=== PATIENT | female | born 1935 | race Caucasian/White ===

== ENCOUNTER → 2016-11-09 | Outpatient (CLI) | payer OTHER ==
--- NOTE | 2016-11-09 17:27 | DX ---
Single view pelvis at 1317 hours History: Comminuted right suprapubic fracture in August 2016, follow up. Comparison: September 2016. Findings: Subacute fractures of the right superior and inferior pubic rami are again noted with some callus formation. Fracture line of the inferior pubic ramus appears in satisfactory alignment with a fracture line still partially evident. The right superior pubic ramus oblique fracture is displaced and overlapping with suggestion of developing calcification. No complete fusion. Old left inferior pubic ramus fracture. Left acetabular protrusio. Moderate bilateral hip osteoarthri tis with slight joint space narrowing and acetabular sclerosis, right worse than left. Partially visu alized lower lumbar levoscoliosis. Sclerotic changes in bilateral sacroiliac joints. Impression: 1. Subacute fractures of the right superior and inferior pubic rami with partial callus formation, bu t no evidence of complete fusion. 2. Left acetabular protrusio. 3. Please see above findings.
== END ==
LOC: FIMAGING 13:02
PROVIDERS: ATTEND Physician Assistant
DX: S32.591A Other specified fracture of right pubis, initial encounter for closed fracture (principal)

== ENCOUNTER 2017-09-11 02:12 | Emergency (ER) | payer OTHER ==
[2017-09-11 02:23] VITALS: RESP 16; TEMP 98.1
--- NOTE | 2017-09-11 02:56 | EDPHY ---
H & P Stated Complaint: fall lac to face Time Seen by Provider: 09/11/17 02:48 HPI/ROS: Chief Complaint: Face laceration HPI: 82-year-old woman was having a restless gene when she fell out of bed, she struck the left side of her face on a stair just next to her bed. She had no loss of consciousness. Is not on any blood thinning medications. No neck pain. No numbness or weakness. No nausea or vomiting. Does not have a headache. No jaw pain or facial pain at this time. ROS: 10 point Review of Systems is negative except as noted in the HPI. Family History: non-contributory Physical Exam: Gen: Awake, Alert, Airway Intact HEENT: Head: Atraumatic Eyes: PERRLA, EOMI Nose: No epistaxis Mouth: Normal dentition, Airway patent, Moban tubular tenderness, full range of motion without pain Face: She has a dog ear laceration on her left cheek, no bony deformities. Neck: non-tender, no stepoff, Full ROM without pain Chest: non-tender, lungs CTA Heart: normal heart tones Abd: soft, non-tender, atraumatic Pelvis: non-tender, stable to AP and Lateral compression Back: atraumatic, no midline tenderness Ext: atramatic, full ROM Skin: no rash Neuro: CN II-XII intact, Strength 5/5 in all extremities, sensation intact in all extremities - Personal History Current Tetanus/Diphtheria Vaccine: Yes Current Tetanus Diphtheria and Acellular Pertussis (TDAP): Yes - Medical/Surgical History Hx Asthma: No Hx Chronic Respiratory Disease: No Hx Diabetes: No Hx Cardiac Disease: No Hx Renal Disease: No Hx Cirrhosis: No Hx Alcoholism: No Hx HIV/AIDS: No Hx Splenectomy or Spleen Trauma: No Other PMH: Renal Stent, cataract surgery, right hip FX - Social History Smoking Status: Never smoked Constitutional: Initial Vital Signs Temperature (C) 36.7 C 09/11/17 02:21 Heart Rate 84 09/11/17 02:21 Respiratory Rate 16 09/11/17 02:21 Blood Pressure 156/82 H 09/11/17 02:21 O2 Sat (%) 93 09/11/17 02:21 O2 Delivery Mode Room Air Allergies/Adverse Reactions: No Known Allergies Allergy (Unverified 02/26/10 02:00) Home Medications: Medication Instructions Recorded Atorvastatin Calcium [Lipitor 20 20 mg PO Q2D 02/26/10 mg (*)] Fluticasone/Salmeter 100/50Mcg 1 puffs IH DAILY PRN 02/26/10 [Advair 100/50 (*)] Hydrochlorothiazide [HCTZ (*)] 25 mg PO DAILY 02/26/10 Irbesartan [Avapro 150 mg (*)] 150 mg PO DAILY 02/26/10 Ascorbic Acid [Vitamin C 500 mg 1,000 mg PO DAILY 09/11/16 (*)] Cholecalciferol Vit D3 [Vitamin D3 5,000 units PO DAILY 09/11/16 (*)] [place]-3 Fatty Acids [Fish Oil 1000 1,000 mg PO DAILY 09/11/16 mg (*)] Omeprazole [Prilosec 20 mg] 20 mg PO DAILY 09/11/16 amLODIPine BESYLATE [Norvasc 5 mg 5 mg PO DAILY #0 tab 09/14/16 (*)] oxyCODONE IR [Oxycodone Ir (*)] 5 - 10 mg PO Q4HRS PRN #0 tab 09/14/16 Acetaminophen [Tylenol 325mg (*)] 650 mg PO Q6 #0 tab 09/16/16 Medical Decision Making Procedures: Procedure: Laceration repair. Verbal consent was obtained from the patient. The 3 cm laceration on the face was anesthetized in the usual fashion. The wound was irrigated, draped and explored to its base with a gloved finger. There were no deep structures involved. No tendon injury was identified. The wound was repaired with a layered closure. To 6-0 Vicryl horizontal mattress deep sutures. Skin closed with 7, 6-0 Ethilon simple interrupted sutures. The wound repair was a complicated later closure. The procedure was performed by myself. ED Course/Re-evaluation: Laceration repaired. Patient head is no headache or bony deformities or tenderness at this time. She is not on any anticoagulation. Will discharge with suture removal 5 days, return for worsening. Departure - Departure Disposition: Home, Routine, Self-Care Clinical Impression: Laceration of face Condition: Good Instructions: Facial Laceration (ED), Care For Your Stitches (ED) Additional Instructions: Sutures need to be removed in 5 days. Return to the emergency depart for increasing headache, fevers, chills, discharge from the wound, nausea, vomiting, or any other concerns. Referrals: Nina Mcfarlane MD [Primary Care Provider] - As per Instructions
[2017-09-11 04:09] VITALS: BP 146/82; PULSE 70; O2SAT 95
== END 2017-09-11 04:14 | disposition home or self-care (01) ==
PROC: 0HQ1XZZ Repair Face Skin, External Approach (ICD-10-PCS; principal; 2017-09-11)
DX: S01.81XA Laceration without foreign body of other part of head, initial encounter (principal); W06.XXXA Fall from bed, initial encounter

== ENCOUNTER 2017-09-27 16:53 | Observation (INO) | payer OTHER ==
--- NOTE | 2017-09-27 18:01 | EDPHY ---
H & P Time Seen by Provider: 09/27/17 17:49 HPI/ROS: \CHIEF COMPLAINT: Shortness of breath with exertion HISTORY OF PRESENT ILLNESS: Patient had a fall 2 weeks ago 09/11/17 injuring left side of her chest. Since Wednesday she has felt increasing dyspnea with exertion until today she can barely even walk across the room without feeling short of breath. Not associated with chest pain or fever or cough. Symptoms not really present at rest but severe with exertion. REVIEW OF SYSTEMS: Eye: no change in vision ENT: no sore throat Cardiac: HPI no syncope Pulmonary: HPI no cough or hemoptysis Abdomen: no vomiting, diarrhea, abdominal pain Musculoskeletal: no back pain Skin: Left-sided chest bruising Neuro: no headache Constitutional: no fever : no urinary symptoms A comprehensive 10 point review of systems is otherwise negative aside from elements mentioned in the history of present illness. PAST MEDICAL HISTORY: Renal stent, cataract surgery, right hip fracture, asthma Social history: Nonsmoker General Appearance: Alert and conversant, cooperative. Eyes: No scleral icterus. ENT, Mouth: Normal mucous membranes. Respiratory: Normal respiratory effort, breath sounds equal, lungs are clear to auscultation. Cardiovascular: Regular rate and rhythm. Gastrointestinal: Abdomen is soft and non tender. Neurological: Alert and oriented x3. Normally conversant. Face symmetric, normal movement and sensation in all extremities. Skin: Bruising on the left chest both upper and lower around her breast. Musculoskeletal: No calf tenderness Psychiatric: Not agitated. ED course: MDM Chest Xray, d-dimer, EKG and troponin. 736: CT ordered, d-dimer elevated. 809pm: Bilateral pulmonary embolism per Dr. Chin Results discussed including reviewing the images on the computer system with the patient. Weight based Lovenox, admission for severity of symptoms. Images also personally reviewed and interpreted by myself. Smoking Status: Never smoked Constitutional: Initial Vital Signs Temperature (C) 36.4 C 09/27/17 16:54 Heart Rate 88 09/27/17 16:54 Respiratory Rate 18 09/27/17 16:54 Blood Pressure 165/100 H 09/27/17 16:54 O2 Sat (%) 92 09/27/17 16:54 O2 Delivery Mode Room Air Allergies/Adverse Reactions: No Known Allergies Allergy (Unverified 02/26/10 02:00) Home Medications: Medication Instructions Recorded Atorvastatin Calcium [Lipitor 20 20 mg PO Q2D 02/26/10 mg (*)] Fluticasone/Salmeter 100/50Mcg 1 puffs IH DAILY PRN 02/26/10 [Advair 100/50 (*)] Hydrochlorothiazide [HCTZ (*)] 25 mg PO DAILY 02/26/10 Irbesartan [Avapro 150 mg (*)] 150 mg PO DAILY 02/26/10 Ascorbic Acid [Vitamin C 500 mg 1,000 mg PO DAILY 09/11/16 (*)] Cholecalciferol Vit D3 [Vitamin D3 5,000 units PO DAILY 09/11/16 (*)] [place]-3 Fatty Acids [Fish Oil 1000 1,000 mg PO DAILY 09/11/16 mg (*)] Omeprazole [Prilosec 20 mg] 20 mg PO DAILY 09/11/16 amLODIPine BESYLATE [Norvasc 5 mg 5 mg PO DAILY #0 tab 09/14/16 (*)] oxyCODONE IR [Oxycodone Ir (*)] 5 - 10 mg PO Q4HRS PRN #0 tab 09/14/16 Acetaminophen [Tylenol 325mg (*)] 650 mg PO Q6 #0 tab 09/16/16 Medical Decision Making - Diagnostics EKG Interpretation: 12-lead EKG interpreted by me; official reading is in trace master. My interpretation is sinus rhythm with left atrial abnormality and left bundle branch block Imaging Results: Imaging Impressions Chest X-Ray 09/27/17 17:59 Impression: 1. No acute findings in the chest. 2. Age-indeterminate compression fractures in the midthoracic and upper lumbar spine. 3. Additional findings as above. Chest/Thorax CTA 09/27/17 19:35 Impression: 1. Positive bilateral pulmonary thromboemboli, moderate volume. 2. 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 3. No pleural effusion or pericardial effusion. 4. Atherosclerotic thoracic aorta, without aneurysm. Coronary atherosclerosis. Findings and recommendations discussed with Emergency Department physician, James Mays M.D., at 2000 hours, on September 27, 2017. Final report concurs with initial preliminary interpretation. A test result has been communicated to a licensed care provider and documented in the [facility] Critical Result system on 09/27/2017 20:09, Message ID [id number]. Differential Diagnosis: Differential diagnosis considered for shortness of breath including but not limited to pulmonary infectious process, COPD, asthma, pulmonary embolus and congestive heart failure. Consult/Admit Bed Type: Rien[facility] 2023 - Data Points Laboratory Results: Laboratory Results 09/27/17 18:30 09/27/17 18:30 09/27/17 09/27/17 09/27/17 18:30 18:30 18:30 WBC 8.58 10^3/uL 10^3/uL (3.80-9.50) RBC 3.87 10^6/uL L 10^6/uL (4.18-5.33) Hgb 13.0 g/dL g/dL (12.6-16.3) Hct 37.5 % L % (38.0-47.0) MCV 96.9 fL fL (81.5-99.8) MCH 33.6 pg pg (27.9-34.1) MCHC 34.7 g/dL g/dL (32.4-36.7) RDW 13.3 % % (11.5-15.2) Plt Count 257 10^3/uL 10^3/uL (150-400) MPV 10.2 fL fL (8.7-11.7) Neut % (Auto) 70.1 % % (39.3-74.2) Lymph % (Auto) 20.6 % % (15.0-45.0) Jerome % (Auto) 7.0 % % (4.5-13.0) Eos % (Auto) 1.0 % % (0.6-7.6) Baso % (Auto) 0.7 % % (0.3-1.7) Nucleat RBC Rel Count 0.0 % % (0.0-0.2) Absolute Neuts (auto) 6.01 10^3/uL 10^3/uL (1.70-6.50) Absolute Lymphs (auto) 1.77 10^3/uL 10^3/uL (1.00-3.00) Absolute Monos (auto) 0.60 10^3/uL 10^3/uL (0.30-0.80) Absolute Eos (auto) 0.09 10^3/uL 10^3/uL (0.03-0.40) Absolute Basos (auto) 0.06 10^3/uL 10^3/uL (0.02-0.10) Absolute Nucleated RBC 0.00 10^3/uL 10^3/uL (0-0.01) Immature Gran % 0.6 % % (0.0-1.1) Immature Gran # 0.05 10^3/uL 10^3/uL (0.00-0.10) D-Dimer 5.21 ug/mLFEU H ug/mLFEU (0.00-0.50) Sodium 140 mEq/L mEq/L (134-144) Potassium 4.7 mEq/L mEq/L (3.5-5.2) Chloride 103 mEq/L mEq/L (97-110) Carbon Dioxide 22 mEq/l mEq/l (22-31) Anion Gap 15 mEq/L mEq/L (8-16) BUN 30 mg/dL H mg/dL (7-23) Creatinine 1.1 mg/dL H mg/dL (0.6-1.0) Estimated GFR 47 Glucose 93 mg/dL mg/dL (70-100) Calcium 9.7 mg/dL mg/dL (8.5-10.4) Troponin I 0.074 ng/mL H ng/mL (0.000-0.034) NT-Pro-B Natriuret Pep 87249 pg/mL H pg/mL (0-450) Specimen Hemolysis 130 Medications Given: Discontinued Medications Enoxaparin Sodium (Lovenox) 60 mg SC EDNOW ONE Stop: 09/27/17 20:18 Last Admin: 09/27/17 21:04 Dose: 60 mg Oxycodone HCl (Oxycodone Ir) 5 mg PO EDNOW ONE Stop: 09/27/17 20:17 Last Admin: 09/27/17 20:44 Dose: 5 mg Departure - Departure Disposition: [facility] Clinical Impression: Bilateral pulmonary embolism Condition: Good
--- NOTE | 2017-09-27 18:35 | CPEKG ---
Heart Rate: 93 RR Interval: 645 P-R Interval: 208 QRSD Interval: 134 QT Interval: 444 QTC Interval: 553 P [place]: 42 QRS [place]: -1 T Wave [place]: 71 EKG Severity - ABNORMAL ECG - EKG Impression: SINUS RHYTHM EKG Impression: SUPRAVENTRICULAR BIGEMINY EKG Impression: PROBABLE LEFT ATRIAL ABNORMALITY EKG Impression: LEFT BUNDLE BRANCH BLOCK Electronically Signed By: James Mays 27-Sep-2017 18:41:44
[2017-09-27 18:45] LABS: % IMMATURE GRANULYOCYTES 0.6 % (0.0-1.1); ABSOLUTE IMMATURE GRANULOCYTES 0.05 10^3/uL (0.00-0.10); ADD DIFF? NO; ADD MORPH? NO; ADD SCAN? NO; ATYPICAL LYMPHOCYTE FLAG 0 (0-99); FRAGMENT RBC FLAG 0 (0-99); HEMATOCRIT 37.5 % (38.0-47.0); LEFT SHIFT FLG 0 (0-99); LIPEMIA HEMOLYSIS FLAG 90 (0-99); MEAN CELL HEMOGLOBIN 33.6 pg (27.9-34.1); MEAN CELL HEMOGLOBIN CONCENTR. 34.7 g/dL (32.4-36.7); MEAN CELL VOLUME 96.9 fL (81.5-99.8); MEAN PLATELET VOLUME 10.2 fL (8.7-11.7); PLATELET CLUMPS FLAG 0 (0-99); PLATELET COUNT 257 10^3/uL (150-400); RED BLOOD CELL COUNT 3.87 10^6/uL (4.18-5.33); RED CELL DISTRIBUTION WIDTH 13.3 % (11.5-15.2)
[2017-09-27 19:10] LABS: ANION GAP 15 mEq/L (8-16); CALCIUM 9.7 mg/dL (8.5-10.4); CARBON DIOXIDE 22 mEq/l (22-31); CHLORIDE 103 mEq/L (97-110); CREATININE 1.1 mg/dL (0.6-1.0); GLOMERULAR FILTRATION RATE 47; GLUCOSE 93 mg/dL (70-100); POTASSIUM 4.7 mEq/L (3.5-5.2); SODIUM 140 mEq/L (134-144); SPECIMEN HEMOLYSIS 130
[2017-09-27 19:20] LABS: TROPONIN I 0.074 ng/mL (0.000-0.034)
[2017-09-27] MEDS ORDERED: IOPAMIDOL (ISOVUE 370) 100 ML BTL IV ONE (19:37)
[2017-09-27] MEDS ORDERED: oxyCODONE IR 5 MG TAB PO ONE (20:16)
[2017-09-27] MEDS ORDERED: ENOXAPARIN 60 MG/0.6 ML SYR SC ONE (20:17)
[2017-09-27] MEDS ORDERED: ONDANSETRON 4 MG/2 ML VIAL IVP PRN (22:23)
[2017-09-27] MEDS ORDERED: ONDANSETRON DISINTEGRATING 4 MG TAB PO PRN (22:23)
[2017-09-27] MEDS ORDERED: ACETAMINOPHEN 325 MG TAB PO PRN (22:23)
[2017-09-27] MEDS ORDERED: IBUPROFEN 600 MG TAB PO ONE (23:19)
--- NOTE | 2017-09-28 00:54 | PDGENHP ---
History and Physical - Chief Complaint Dyspnea - History of Present Illness 82 yo F w/ HTN sent to ED from PCP's office after hypoxia and ANDERSON noted on today 's visit. Patient fell out of her bed 2 weeks ago and bruised her left chest. In the time since the fall she has noticed some dyspnea on exertion, which was new for her. She went to her PCP's office today and was noted be hypoxic once there so she was sent to the ED. In the ED D-dimer was elevated so CTPE was performed, which showed bilateral pulmonary emboli. Patient denies personal or family history of clotting or bleeding. At the time of my evaluation patient is asymptomatic and A&Ox3. History Information - Allergies/Home Medication List Allergies/Adverse Reactions: No Known Allergies Allergy (Unverified 02/26/10 02:00) Home Medications: Atorvastatin Calcium [Lipitor 20 mg (*)] 20 mg PO Q2D 02/26/10 [Last Taken 09/27] Fluticasone/Salmeter 100/50Mcg [Advair 100/50 (*)] 1 puffs IH DAILY PRN [Last Taken 09/27/17 08:00] Omeprazole [Prilosec 20 mg] 20 mg PO DAILY 09/11/16 [Last Taken 09/27/17] Hydrochlorothiazide [HCTZ (*)] 12.5 mg PO DAILY 09/27/17 [Last Taken 09/27/17] Losartan Potassium 100 mg PO DAILY 09/27/17 [Last Taken 09/27/17] Sertraline HCl [Zoloft 50mg (*)] 50 mg PO DAILY 09/27/17 [Last Taken 09/27/17] oxyCODONE IR [Oxycodone Ir (*)] 5 mg PO TID PRN 09/27/17 [Last Taken 09/27/17] traMADol [Ultram 50 mg (*)] 50 mg PO Q4 PRN 09/27/17 [Last Taken 09/27/17] I have personally reviewed and updated: family history, medical history - Past Medical History hypertension - Surgical History Additional surgical history: L renal artery stent placed for NIKKI in 2001 - Family History Additional family history: Denies family hx of blood clots - Social History Smoking Status: Former smoker Review of Systems Review of Systems: ROS: 10pt was reviewed & negative except for what was stated in HPI & below Physical Exam Physical Exam: Temp Pulse Resp BP Pulse Ox 36.4 C 87 14 160/92 H 92 09/27/17 21:32 09/27/17 21:32 09/27/17 21:32 09/27/17 21:32 09/27/17 21:32 O2 (L/minute) 2 Constitutional: no apparent distress, not in pain Eyes: PERRL, EOMI Ears, Nose, Mouth, Throat: moist mucous membranes, no oral mucosal ulcers Cardiovascular: regular rate and rhythym, no murmur, rub, or gallop Respiratory: no respiratory distress, clear to auscultation Gastrointestinal: normoactive bowel sounds, soft, non-tender abdomen Skin: warm, other (Ecchymoses over L chest) Musculoskeletal: full muscle strength, no muscle tenderness Neurologic: AAOx3, CN II-XII Intact Psychiatric: interacting appropriately, not anxious Lab Data & Imaging Review 09/27/17 18:30 09/27/17 18:30 WBC 8.58 10^3/uL (3.80-9.50) 09/27/17 18:30 RBC 3.87 10^6/uL (4.18-5.33) L 09/27/17 18:30 Hgb 13.0 g/dL (12.6-16.3) 09/27/17 18:30 Hct 37.5 % (38.0-47.0) L 09/27/17 18:30 MCV 96.9 fL (81.5-99.8) 09/27/17 18:30 MCH 33.6 pg (27.9-34.1) 09/27/17 18:30 MCHC 34.7 g/dL (32.4-36.7) 09/27/17 18:30 RDW 13.3 % (11.5-15.2) 09/27/17 18:30 Plt Count 257 10^3/uL (150-400) 09/27/17 18:30 MPV 10.2 fL (8.7-11.7) 09/27/17 18:30 Neut % (Auto) 70.1 % (39.3-74.2) 09/27/17 18:30 Lymph % (Auto) 20.6 % (15.0-45.0) 09/27/17 18:30 Mcintosh % (Auto) 7.0 % (4.5-13.0) 09/27/17 18:30 Eos % (Auto) 1.0 % (0.6-7.6) 09/27/17 18:30 Baso % (Auto) 0.7 % (0.3-1.7) 09/27/17 18:30 Nucleat RBC Rel Count 0.0 % (0.0-0.2) 09/27/17 18:30 Absolute Neuts (auto) 6.01 10^3/uL (1.70-6.50) 09/27/17 18:30 Absolute Lymphs (auto) 1.77 10^3/uL (1.00-3.00) 09/27/17 18:30 Absolute Monos (auto) 0.60 10^3/uL (0.30-0.80) 09/27/17 18:30 Absolute Eos (auto) 0.09 10^3/uL (0.03-0.40) 09/27/17 18:30 Absolute Basos (auto) 0.06 10^3/uL (0.02-0.10) 09/27/17 18:30 Absolute Nucleated RBC 0.00 10^3/uL (0-0.01) 09/27/17 18:30 Immature Gran % 0.6 % (0.0-1.1) 09/27/17 18:30 Immature Gran # 0.05 10^3/uL (0.00-0.10) 09/27/17 18:30 D-Dimer 5.21 ug/mLFEU (0.00-0.50) H 09/27/17 18:30 Sodium 140 mEq/L (134-144) 09/27/17 18:30 Potassium 4.7 mEq/L (3.5-5.2) 09/27/17 18:30 Chloride 103 mEq/L (97-110) 09/27/17 18:30 Carbon Dioxide 22 mEq/l (22-31) 09/27/17 18:30 Anion Gap 15 mEq/L (8-16) 09/27/17 18:30 BUN 30 mg/dL (7-23) H 09/27/17 18:30 Creatinine 1.1 mg/dL (0.6-1.0) H 09/27/17 18:30 Estimated GFR 47 09/27/17 18:30 Glucose 93 mg/dL (70-100) 09/27/17 18:30 Calcium 9.7 mg/dL (8.5-10.4) 09/27/17 18:30 Troponin I 0.074 ng/mL (0.000-0.034) H 09/27/17 18:30 NT-Pro-B Natriuret Pep 66708 pg/mL (0-450) H 09/27/17 18:30 Specimen Hemolysis 130 09/27/17 18:30 Imaging Review: CTPE: Moderate volume bilateral pulmonary emboli, possible early IPF. Visualized and Interpreted EKG results: Yes EKG Interpretation: Positive for: left bundle branch block, normal sinsus rhythm Assessment & Plan Assessment: 82 yo F w/ hx of HTN presents with bilateral pulmonary emboli. Plan: 1. Submassive, bilateral pulmonary emboli - Possibly provoked by fall that occurred 2 weeks ago, although this seems somewhat unusual. PESI 103 denoting intermediat risk. Patient has no personal or family history of blood clots. She is hemodynamically stable and only requiring 2L O2 via NC but does have laboratory evidence of right heart strain with elevated troponin and BNP. - S/p Lovenox 1 mg/kg x1 in ED - Will start rivaroxaban 15 mg BID, discussed risks and benefits with patient - TTE for evaluation noting elevated troponin and BNP - Wean O2 as able, may need home O2 2. Elevated troponin - Suspect related to above, no symptoms to suggest ACS. - Trend cardiac enzymes 3. HTN - On amlodipine, losartan, and HCTZ as outpatient, will continue noting hypertensive here. Has hx of L renal artery stent for NIKKI in 2001. 4. Depression - Continue SSRI Diet - Regular Code - Full Ppx - Xarelto Dispo - Admit to observation status
[2017-09-28] MEDS ORDERED: FLUTICASONE/SALMETER 100/50MCG DISKUS IH PRN (01:02)
[2017-09-28 05:23] LABS: % IMMATURE GRANULYOCYTES 0.2 % (0.0-1.1); ABSOLUTE IMMATURE GRANULOCYTES 0.01 10^3/uL (0.00-0.10); ADD DIFF? NO; ADD MORPH? NO; ADD SCAN? NO; ATYPICAL LYMPHOCYTE FLAG 10 (0-99); FRAGMENT RBC FLAG 0 (0-99); HEMATOCRIT 32.8 % (38.0-47.0); HEMOGLOBIN 11.1 g/dL (12.6-16.3); LEFT SHIFT FLG 0 (0-99); LIPEMIA HEMOLYSIS FLAG 90 (0-99); MEAN CELL HEMOGLOBIN 32.9 pg (27.9-34.1); MEAN CELL HEMOGLOBIN CONCENTR. 33.8 g/dL (32.4-36.7); MEAN CELL VOLUME 97.3 fL (81.5-99.8); MEAN PLATELET VOLUME 10.7 fL (8.7-11.7); PLATELET CLUMPS FLAG 0 (0-99); PLATELET COUNT 211 10^3/uL (150-400); RED BLOOD CELL COUNT 3.37 10^6/uL (4.18-5.33); RED CELL DISTRIBUTION WIDTH 13.2 % (11.5-15.2)
[2017-09-28 05:54] LABS: ANION GAP 13 mEq/L (8-16); CALCIUM 8.9 mg/dL (8.5-10.4); CARBON DIOXIDE 22 mEq/l (22-31); CHLORIDE 107 mEq/L (97-110); CREATININE 0.9 mg/dL (0.6-1.0); GLOMERULAR FILTRATION RATE 60; GLUCOSE 94 mg/dL (70-100); POTASSIUM 3.7 mEq/L (3.5-5.2); SODIUM 142 mEq/L (134-144)
[2017-09-28 06:00] LABS: TROPONIN I 0.048 ng/mL (0.000-0.034)
[2017-09-28] MEDS: oxyCODONE IR 5 MG TAB PO PRN ×2 (07:03→13:56)
[2017-09-28] MEDS ORDERED: PANTOPRAZOLE SODIUM 40 MG TAB PO SCH (09:00)
[2017-09-28] MEDS ORDERED: SERTRALINE HCL 50 MG TAB PO SCH (09:00)
[2017-09-28] MEDS ORDERED: HYDROCHLOROTHIAZIDE 12.5 MG CAP PO SCH (09:00)
[2017-09-28] MEDS ORDERED: LOSARTAN POTASSIUM 50 MG TAB PO SCH (09:00)
[2017-09-28] MEDS ORDERED: RIVAROXABAN 10 MG TAB PO SCH (09:00)
[2017-09-28] MEDS ORDERED: amLODIPine BESYLATE 5 MG TAB PO SCH (09:00)
--- NOTE | 2017-09-28 09:51 | HOSPPROG ---
Hospitalist Progress Note Assessment/Plan: #Bilateral PE: with moderate volume. Suspect provoked with decreased activity after fall 2 weeks ago -hemodynamically stable. TTE with normal RV function #h/o of renal stenosis #Acute hypoxic resp failure: due to PE. Oxygen at DC #LBBB: no old to compare. No CP. Can FU outpatient #Disp: DC today. See DC summary for full A&P Subjective: no SOB, CP , dizziness or lightheadedness Objective: Vital Signs Temp Pulse Resp BP Pulse Ox 36.7 C 81 16 151/92 H 93 09/28/17 07:17 09/28/17 07:17 09/28/17 07:17 09/28/17 07:17 09/28/17 07:17 Laboratory Results 09/28/17 04:12 09/28/17 04:12 09/27/17 09/28/17 09/29/17 05:59 05:59 05:59 Intake Total 200 350 Balance 200 350 - Physical Exam Constitutional: no apparent distress Eyes: PERRL Ears, Nose, Mouth, Throat: moist mucous membranes Cardiovascular: regular rate and rhythym, No edema Respiratory: no respiratory distress, no rales or rhonchi Gastrointestinal: normoactive bowel sounds Genitourinary: no bladder fullness Skin: warm Musculoskeletal: full muscle strength Neurologic: AAOx3, CN II-XII Intact Psychiatric: interacting appropriately ICD10 Worksheet Patient Problems: Problems Problem Status Onset Bilateral pulmonary embolism Acute Fracture of pubic ramus Acute Left hip pain Acute
--- NOTE | 2017-09-28 11:15 | ECHO ---
[email or web address] [address] Main: [phone] Fax: Transthoracic Echocardiogram Name: TATA FLORES MR#: [id number] Study Date: 09/28/2017 Study Time: 07:44 AM Date of : 1935 Age: 82 year(s) Height: 167.6 cm (66 in.) Weight: 61.69 kg (136 lb.) BSA: 1.7 m2 Gender: Female Examination: Echo Indication: PE/R heart strain Image Quality: Contrast: Requested by: Luke Dietrich BP: 151 mmHg/92 mmHg Heart Rate: Rhythm: Indication: PE/R heart strain Procedure Staff Plodding Machine Operator: Darcy Xavier Reading Physician: Ike Jay Requesting Provider: Conclusions: No pericardial effusion. Normal LV systolic function with dyskinetic septum. Calcification of the mitral valve annulus and aortic valve cusps with mild aortic and mitral regurgitation. Measurements: Chambers Valvular Assessment AV/MV Valvular Assessment TV/PV Normal Normal Normal Name Value Range Name Value Range Name Value Range Ao Gabby (MM): 3.2 cm (2.2 cm-3.7 AV meanP mmHg ( - ) TR Vmax: 6.34 mm/s ( - ) cm) AR (PHT): 630 ms ( - ) TR PGmax: 161 mmHg ( - ) IVSd (2D): 1.0 cm (0.6 cm-1.1 MV E Vmax: 0.87 m/s ( - ) syst. PAP: 166 mmHg ( - ) cm) MV A Vmax: 0.37 m/s ( - ) LVDd (2D): 4.0 cm (3.9 cm-5.3 MV E/A: 2.35 ( - ) cm) LVDs (2D): 3.1 cm (2.1 cm-4 cm) LVPWd (2D): 0.8 cm ( - ) LVOTd 2.2 cm 2.2 cm mm LVEF (MOD4): 56 % (>=55 %) EF Range: 55-60 % Continued Measurements: Chambers Valvular Assessment AV/MV Valvular Assessment TV/PV Name Value Name Value Name Value LADs: 3.3 cm MV E' Septal: 0.05 m/s CVP (est.): 5 mmHg LADs Lon.0 cm MV E/E' Septal: 18.70 LA Area: 15.6 cm2 MV E/E' Lateral: 17.20 AR Vmax: 4.76 cm/s Patient: TATA FLORES Study Date: 09/28/2017 Page 1 of 2 07:44 AM Findings: Left Ventricle: Normal size left ventricle. No LV hypertrophy. The ejection fraction is estimated to be 55-60 %. There is paradoxic septal motion suggestive of bundle branch block, paced cardiac rhythm, or prior cardiac surgery. Right Ventricle: Normal size right ventricle. There is a moderator band noted in the right ventricle. Abnormal septal motion consistent with conduction abnormality septum. Left Atrium: The left atrium is normal in size. Right Atrium: The right atrium is borderline dilated. Mitral Valve: Mild mitral valve leaflet calcification is present. There is mild prolapse of the posterior leaflet of the mitral valve. Mild mitral valve regurgitation is present. Aortic Valve: Mild aortic cusp calcification is noted. Mild aortic valve regurgitation is present. AV opens well.. Tricuspid Valve: The tricuspid valve appears normal. Mild tricuspid regurgitation is present. The pulmonary artery pressure is slightly increased. RVSP is 41mmHG.. Pulmonic Valve: The pulmonic valve is normal in appearance. Mild pulmonic valve regurgitation is noted. Pericardium: No pericardial effusion. (No Signature Object) Patient: TATA FLORES Study Date: 09/28/2017 Page 2 of 2 07:44 AM [id number]
[2017-09-28 11:43] VITALS: BP 151/91; PULSE 80; RESP 14; TEMP 97.7
[2017-09-28 12:39] VITALS: O2SAT 88
--- NOTE | 2017-09-28 13:35 | PDHOMEO2F ---
Home Oxygen Face to Face Home Orders: I certify that a physician or a nurse practitioner or physician's insurance administrative assistant has had a [id number] encounter with this patient on the date of this order due to the diagnosis listed, which relates to the primary reason the patient requires home oxygen. Alternative treatments have been tried, or considered, and deemed ineffective. It is anticipated that supplemental oxygen will result in improvement with treatment. Home oxygen qualifying diagnosis: pulmonary embolism Home oxygen secondary diagnosis: hypoxia SpO2 on room air (%): 84 Frequency of home oxygen needed: continuous Home oxygen liters per minute: 2 Home oxygen delivery device: nasal cannula Concentrator: Yes E-tanks for mobility and back up: Yes If ordering portable O2, is the patient mobile in the home?: Yes I certify that, based on these findings, the home oxygen is medically necessary for this patient for the following length of time. Length of time home oxygen needed: 1 month
--- NOTE | 2017-09-28 14:58 | ASMTCMCOM ---
CM Note CM Note Notes: Chart reviewed, met with patient to reviewed dc plan of care. Per her RN MD feels therapies not warranted at present. patient has been living independtly with her SO. Able to meet all requirements of ADL's. Plan home independent with home oxygen. CM available should needs arise. Date Signed: 09/28/2017 02:58 PM Electronically Signed By:Angelina Luis RN
[2017-09-28] MEDS ORDERED: RIVAROXABAN 15 MG TAB PO SCH (18:00)
--- NOTE | 2017-09-29 01:02 | GDS ---
[f rep st] DISCHARGE SUMMARY DISCHARGE DIAGNOSES: 1. Acute pulmonary embolism bilaterally. 2. Acute hypoxic respiratory failure. 3. Indeterminate troponin. 4. Hypertension. 5. Depression. HISTORY OF PRESENT ILLNESS: An 82-year-old female with history of hypertension, sent in from her PCP 's office after found to be hypoxic and having dyspnea on exertion. She fell out of her bed 2 weeks ago, bruised the left side of her chest, and required stitches in the left side of her face. Since t hat time, she has had minimal exercise, and she normally walks 2 miles a day. In the ER, her D-dimer was elevated, and CT PE showed bilateral pulmonary emboli. She denies any per enzo or family history of clotting disorder. She has had a normal colonoscopy, mammograms, and Pap smears in the past. HOSPITAL COURSE BY PROBLEM: 1. Bilateral pulmonary embolism: Likely provoked in the setting of immobility with recent fall. Dea mann has had a normal routine cancer screening and no family history of clotting disorder. She has opte d for Xarelto, which we have started. She did have indeterminate troponin and elevated BNP, but maci ins hemodynamically stable on 2 L of oxygen. Echocardiogram shows normal RV size and function. 2. Indeterminate troponin: Denies any chest pain. Troponin 0.074, trended to 0.048. EKG showed le ft bundle branch block with no old to compare. I would recommend followup with her PCP. Could consi mack outpatient stress testing. 3. Depression: Continue SSRI. 4. Acute hypoxic respiratory failure: Secondary to PE. Now on 2 L. Will discharge with oxygen. 5. Hypertension: Resume home medications. 6. Recent fall: This was a mechanical fall getting out of bed. There was no evidence of rib fractu re on x-ray. Discharge with incentive spirometry. DISPOSITION: Patient is stable for discharge home. She is ambulating well with her walker. DISCHARGE MEDICATIONS: New medications: Xarelto 15 mg b.i.d. for 3 weeks, then 20 mg daily. FOLLOWUP: Her PCP. /[id number]/MODL
[2017-09-29] MEDS ORDERED: ATORVASTATIN CALCIUM 20 MG TAB PO SCH (09:00)
== END 2017-09-28 16:27 | disposition home or self-care (01) ==
LOC: INTOOBSV 20:24 → F2W 21:20
PROVIDERS: ADMIT Student in an Organized Health Care Education/Training Program; ATTEND Student in an Organized Health Care Education/Training Program
DX: I26.99 Other pulmonary embolism without acute cor pulmonale (principal); J96.01 Acute respiratory failure with hypoxia; I10 Essential (primary) hypertension; F32.9 Major depressive disorder, single episode, unspecified; Z87.891 Personal history of nicotine dependence
CPT/HCPCS: 71020; 71275; 93005; 93306; J1650; Q9967

== ENCOUNTER 2017-10-17 20:31 | Inpatient (IN) | payer OTHER ==
[2017-10-17] MEDS ORDERED: NS 1,000 ML IV ONE ×2 (20:37→21:04)
--- NOTE | 2017-10-17 20:42 | EDPHY ---
H & P HPI/ROS: HPI CHIEF COMPLAINT: Left hip pain, fall HISTORY OF PRESENT ILLNESS: Patient very pleasant 82-year-old female, history of pulmonary embolisms on Xarelto, she presents emergency room after she thinks she had a mechanical trip and fall over some oxygen tubing. She fell behind her couch. She stain left hip pain. Denies any other areas of injury. Patient reports that she has left hip pain. She was brought here by EMS. Her left leg is externally rotated and shortened. She denies any other areas of pain. She does state that she had 2 vodka drinks tonight. She does smell of alcohol. She denies any significant pain of her left hip is 3/10 pain. She declined any pain medicine. Past Medical History: Pulmonary embolism on Xarelto, wears oxygen 2 L nasal cannula Past Surgical History: No recent surgery Social History: Denies daily use of drugs, does admit to alcohol, denies tobacco Family History: Noncontributory ROS REVIEW OF SYSTEMS: A comprehensive 10 point review of systems is otherwise negative aside from elements mentioned in the history of present illness. Exam Constitutional triage nursing summary reviewed, vital signs reviewed, awake/ alert. Eyes normal conjunctivae and sclera, EOMI, PERRLA. HENT normal inspection, atraumatic, moist mucus membranes, no epistaxis, neck supple/ no meningismus, no raccoon eyes. Respiratory clear to auscultation bilaterally, normal breath sounds, no respiratory distress, no wheezing. Cardiovascular rate normal, regular rhythm, no murmur, no edema, distal pulses normal. Gastrointestinal soft, non-tender, no rebound, no guarding, normal bowel sounds, no distension, no pulsatile mass. Genitourinary no CVA tenderness. Musculoskeletal no midline vertebral tenderness, full range of motion, no calf swelling, no tenderness of extremities, no meningismus, good pulses, neurovascularly intact. Left lower extremity: Externally rotated and shortened , neurovascular intact. Good distal pulse. Warm extremity. Tender palpation over the left lateral hip. Skin pink, warm, & dry, no rash, skin atraumatic. Neurologic awake, alert and oriented x 3, AAOx3, moves all 4 extremities equally, motor intact, sensory intact, CN II-XII intact, normal cerebellar, normal vision, normal speech. Psychiatric normal mood/affect. Heme/Lymph/Immune no lymphadenopathy. Differential Diagnosis: Includes but is not limited to in a particular order left hip fracture, soft tissue injury, acute alcohol intoxication, electrolyte disturbance, dehydration, syncope, mechanical trip and fall Medical Decision Making: Plan for this patient x-ray left hip. IV establishment blood draw, check basic blood work, check alcohol level, chest x- ray. EKG. Admit to the hospital service for left hip fracture and orthopedic consult. Re-evaluation: Left hip x-ray reviewed by myself. This shows comminuted impacted femoral neck fracture. This patient need to be admitted to the hospital for left hip fracture. Will need surgical fixation. Will consult hospitalist service for admission. And consult Orthopedics. 2107: Spoke with the hospitalist service Dr. Babin. She agrees to admit. Blood work is pending at this time. Additionally I have consult Orthopedics. Waiting power distribution engineer back. EKG interpretation by me on record in relocality system. Impression time of EKG 2101, this is sinus rhythm first-degree AV block WA interval 224. Nonspecific intraventricular conduction delay LVH present. When I compare this to her old EKG dated 09/27/2017 unchanged. 2141: The Dr. Coon Consulted. Source: Patient, EMS - Medical/Surgical History Hx Asthma: No Hx Chronic Respiratory Disease: No Hx Diabetes: No Hx Cardiac Disease: No Hx Renal Disease: No Hx Cirrhosis: No Hx Alcoholism: No Hx HIV/AIDS: No Hx Splenectomy or Spleen Trauma: No Other PMH: Renal Stent, cataract surgery, right hip FX. htn - Social History Smoking Status: Former smoker Constitutional: Initial Vital Signs Temperature (C) 36.7 C 10/17/17 20:40 Heart Rate 80 10/17/17 20:40 Respiratory Rate 20 10/17/17 20:40 Blood Pressure 130/67 H 10/17/17 20:40 O2 Sat (%) 96 10/17/17 20:40 O2 Delivery Mode Room Air Allergies/Adverse Reactions: No Known Allergies Allergy (Unverified 10/17/17 20:40) Home Medications: Medication Instructions Recorded Atorvastatin Calcium [Lipitor 20 20 mg PO Q2D 02/26/10 mg (*)] Fluticasone/Salmeter 100/50Mcg 1 puffs IH DAILY PRN 02/26/10 [Advair 100/50 (*)] Omeprazole [Prilosec 20 mg] 20 mg PO DAILY 09/11/16 amLODIPine BESYLATE [Norvasc 5 mg 5 mg PO DAILY #0 tab 09/14/16 (*)] Acetaminophen [Tylenol 325mg (*)] 650 mg PO Q6 #0 tab 09/16/16 Losartan Potassium 100 mg PO DAILY 09/27/17 Sertraline HCl [Zoloft 50mg (*)] 50 mg PO DAILY 09/27/17 oxyCODONE IR [Oxycodone Ir (*)] 5 mg PO TID PRN 09/27/17 traMADol [Ultram 50 mg (*)] 50 mg PO Q4 PRN 09/27/17 Rivaroxaban [Xarelto 15mg (*)] 15 mg PO BIDMEAL 10/17/17 Medical Decision Making - Data Points Laboratory Results: Laboratory Results 10/17/17 21:00 10/17/17 21:00 Medications Given: Acetaminophen (Tylenol) 650 mg PO Q4HRS PRN PRN Reason: Pain, Mild/Fever, Can Take PO Stop: 04/15/18 21:03 Last Admin: 10/18/17 04:41 Dose: 650 mg Acetaminophen (Tylenol) 650 mg PO Q6 CHRISTIANO Stop: 04/16/18 11:59 Last Admin: 10/18/17 16:32 Dose: 650 mg Amlodipine Besylate (Norvasc) 5 mg PO DAILY CHRISTIANO Stop: 04/16/18 08:59 Last Admin: 10/18/17 09:53 Dose: Not Given Hydromorphone HCl (Dilaudid) 0.5 - 1 mg IVP Q3HRS PRN PRN Reason: Pain, Severe Unable to Take PO Stop: 10/28/17 05:44 Last Admin: 10/18/17 05:55 Dose: 0.5 mg Thiamine HCl 500 mg/ Sodium (Chloride) 105 mls @ 210 mls/hr IV DAILY@2100 CHRISTIANO Stop: 10/19/17 21:29 Last Admin: 10/18/17 20:18 Dose: 105 mls Losartan Potassium (Cozaar) 100 mg PO DAILY CHRISTIANO Stop: 04/16/18 09:14 Last Admin: 10/18/17 09:53 Dose: 100 mg Methocarbamol (Robaxin) 750 mg PO TID PRN PRN Reason: Spasms Stop: 04/16/18 15:59 Last Admin: 10/18/17 16:32 Dose: 750 mg Oxycodone HCl (Oxycodone Ir) 5 mg PO TID PRN PRN Reason: Pain, Severe Able to Take PO Stop: 10/28/17 09:01 Last Admin: 10/18/17 16:32 Dose: 5 mg Pantoprazole Sodium (Protonix) 40 mg PO DAILY CHRISTIANO Stop: 04/16/18 08:59 Last Admin: 10/18/17 11:26 Dose: 40 mg Polyethylene Glycol (Miralax) 17 gm PO DAILY PRN; Protocol PRN Reason: Constipation, patient prefers Stop: 04/16/18 10:43 Last Admin: 10/18/17 11:12 Dose: 17 gm Senna/Docusate Sodium (Senokot-S) 1 - 2 tab PO BID CHRISTIANO PRN Reason: Protocol Stop: 04/16/18 20:59 Last Admin: 10/18/17 20:21 Dose: 2 tab Sertraline HCl (Zoloft) 50 mg PO DAILY [facility] Stop: 04/16/18 09:14 Last Admin: 10/18/17 09:54 Dose: 50 mg Tramadol HCl (Ultram) 50 mg PO Q4 PRN PRN Reason: Pain, Moderate Stop: 04/16/18 09:01 Last Admin: 10/18/17 20:21 Dose: 50 mg Discontinued Medications Sodium Chloride (Ns) 1,000 mls @ 0 mls/hr IV EDNOW ONE; Wide Open PRN Reason: Protocol Stop: 10/17/17 20:38 Last Admin: 10/17/17 21:13 Dose: 1,000 mls Sodium Chloride (Ns) 1,000 mls @ 3,000 mls/hr IV ONCE ONE Stop: 10/17/17 21:23 Last Admin: 10/17/17 21:26 Dose: Not Given Thiamine HCl 500 mg/ Sodium (Chloride) 105 mls @ 210 mls/hr IV DAILY [facility] Stop: 10/20/17 21:14 Last Admin: 10/17/17 22:08 Dose: 105 mls Cefazolin Sodium (Cefazolin Syringe) 2 gm in 20 mls @ 40 mls/hr IVP ONCALL ONE PRN Reason: Protocol Stop: 10/18/17 06:29 Last Admin: 10/18/17 08:59 Dose: Not Given Phytonadione (Vitamin K) 5 mg PO BID CHRISTIANO Stop: 10/18/17 21:01 Last Admin: 10/18/17 20:32 Dose: 5 mg Departure - Departure Disposition: [facility] In[facility] Acute Clinical Impression: Hip fracture Qualifiers: Encounter type: initial encounter Fracture type: closed Laterality: left Qualified Code(s): S72.002A - Fracture of unspecified part of neck of left femur , initial encounter for closed fracture Condition: Fair
[2017-10-17] MEDS ORDERED: ONDANSETRON 4 MG/2 ML VIAL IVP PRN (21:04)
[2017-10-17] MEDS ORDERED: ACETAMINOPHEN 325 MG TAB PO PRN (21:04)
[2017-10-17] MEDS ORDERED: ONDANSETRON DISINTEGRATING 4 MG TAB PO PRN (21:04)
--- NOTE | 2017-10-17 21:04 | CPEKG ---
Heart Rate: 78 RR Interval: 769 P-R Interval: 224 QRSD Interval: 132 QT Interval: 472 QTC Interval: 538 P Erath: 32 QRS Erath: 46 T Wave Erath: 37 EKG Severity - ABNORMAL ECG - EKG Impression: SINUS RHYTHM EKG Impression: FIRST DEGREE AV BLOCK EKG Impression: NONSPECIFIC INTRAVENTRICULAR CONDUCTION DELAY EKG Impression: PROBABLE LEFT VENTRICULAR HYPERTROPHY Electronically Signed By: Sy North 17-Oct-2017 21:44:06
[2017-10-17] MEDS ORDERED: LORazepam 2 MG/ML INJ IVP PRN (21:11)
[2017-10-17] MEDS ORDERED: THIAMINE HCL 500 MG in NS 100 ML IV SCH (21:15)
[2017-10-17 21:18] LABS: % IMMATURE GRANULYOCYTES 0.7 % (0.0-1.1); ABSOLUTE IMMATURE GRANULOCYTES 0.05 10^3/uL (0.00-0.10); ADD DIFF? NO; ADD MORPH? NO; ADD SCAN? NO; ATYPICAL LYMPHOCYTE FLAG 30 (0-99); FRAGMENT RBC FLAG 0 (0-99); HEMATOCRIT 34.8 % (38.0-47.0); HEMOGLOBIN 11.8 g/dL (12.6-16.3); LEFT SHIFT FLG 0 (0-99); LIPEMIA HEMOLYSIS FLAG 90 (0-99); MEAN CELL HEMOGLOBIN 33.2 pg (27.9-34.1); MEAN CELL HEMOGLOBIN CONCENTR. 33.9 g/dL (32.4-36.7); MEAN PLATELET VOLUME 9.8 fL (8.7-11.7); PLATELET CLUMPS FLAG 0 (0-99); PLATELET COUNT 247 10^3/uL (150-400); RED BLOOD CELL COUNT 3.55 10^6/uL (4.18-5.33); RED CELL DISTRIBUTION WIDTH 12.7 % (11.5-15.2)
[2017-10-17 21:28] LABS: INR 2.77 (0.83-1.16); PROTIME(PATIENT) 29.2 SEC (12.0-15.0)
[2017-10-17 21:29] LABS: APTT 42.1 SEC (23.0-38.0)
[2017-10-17 21:32] LABS: ANION GAP 15 mEq/L (8-16); CALCIUM 9.1 mg/dL (8.5-10.4); CARBON DIOXIDE 21 mEq/l (22-31); CHLORIDE 105 mEq/L (97-110); CREATININE 0.8 mg/dL (0.6-1.0); ETHANOL SERUM 205 mg/dL (0-10); GLOMERULAR FILTRATION RATE > 60; GLUCOSE 107 mg/dL (70-100); SODIUM 141 mEq/L (134-144)
[2017-10-17 21:42] LABS: CREATINE KINASE-MB FRACTION 1.44 ng/mL (0.00-4.55)
[2017-10-17 21:44] LABS: TROPONIN I < 0.012 ng/mL (0.000-0.034)
--- NOTE | 2017-10-17 22:22 | GHP ---
[f rep st] HISTORY AND PHYSICAL DATE OF ADMISSION: 10/17/2017 CHIEF COMPLAINT: Left hip pain. HISTORY OF PRESENT ILLNESS: An 82-year-old female with a history of a recent diagnosis of pulmonary embolism on Xarelto, who presents to the emergency department after a mechanical fall, where she trip ped on which she believes was oxygen tubing. Fell behind her couch and sustained left hip pain. Domenica obregon was brought by EMS for evaluation. In the ED, the patient endorses left hip pain. Denies any l oss of consciousness. Denies chest pain, shortness of breath, pleuritic chest pain. Denies nausea v omiting, abdominal discomfort, dysuria, any lower extremity swelling. Patient has been stable since her disposition recently from the hospital for pulmonary embolism. Has been using her oxygen chronic ally without complication. PAST MEDICAL HISTORY: 1. Pulmonary embolism, on Xarelto. 2. Depression. 3. Hypertension. 4. Alcohol abuse. SOCIAL HISTORY: The patient lives with her . reports that she drinks very heavily be tween 5:30 and 7:30 at night and has done so for many, many years. Denies any tobacco or illicit marlee gs. FAMILY HISTORY: Negative for pulmonary embolism. REVIEW OF SYSTEMS: A 10-point review of systems is negative with the exception of that reported in t he HPI. ADVANCED DIRECTIVES: Patient is full cor, full tube. Her eldest daughter is her medical decision eric peralta. PHYSICAL EXAMINATION: VITAL SIGNS: Blood pressure 130/67, heart rate 80, respiratory rate 14, satur ating 96% on 2 L, 36.7. GENERAL: This is a pleasant, elderly female who appears intoxicated on my e xamination. HEENT: Notable for moist mucous membranes. Eye exam is negative for any icterus. CARD IAC: The patient is regular rate and rhythm. PULMONARY: Clear to auscultation bilaterally. GASTROI NTESTINAL: Positive bowel sounds. ABDOMEN: Soft and nontender. MUSCULOSKELETAL: There is no lowe r extremity edema. The left leg is measurably shorter than the left and externally rotated. The domenica obregon has pain with any movement. SKIN: Negative for any rashes. NEUROLOGIC: She is alert and orie nted x3. PSYCHIATRIC: She is cooperative on interview and examination. DATA: White count 6.0, hematocrit 32.8, platelets of 211. Creatinine 0.9. Hip x-ray, which I perso марина reviewed and interpreted, shows a complete fracture of the left femur. ASSESSMENT AND PLAN: This is an 82-year-old female presenting with left hip pain. 1. Acute femur fracture. The patient is on chronic anticoagulation. Will be admitted. Hold antico agulation for orthopaedic evaluation and anticipated repair tomorrow. Can bridge the patient with Lo venox depending on timing of surgery. Holding all anticoagulation at this moment. Treat with p.r.n. IV pain medications. Patient will be n.p.o. after midnight in anticipation of orthopedic interventi on. 2. Alcohol abuse. It sounds as if the patient's nighttime drinking is quite heavy. I believe that intoxication likely contributed to this mechanical fall. Blood alcohol level is ordered. I have add itionally ordered alcohol withdrawal protocol so we can monitor as the patient remains in the hospita for orthopedic intervention. 3. Pulmonary embolism. The patient took her anticoagulation today. Again, this will be held on her DEC for tomorrow. During her hospitalization, which was in September of 2017, the transthoracic echo cardiogram showed normal right ventricular size without any right ventricular dysfunction. Prophylax is with sequential compression device to the unaffected leg. 4. Diet. N.p.o. after midnight. DISPOSITION: I expect greater than 2 midnights, as the patient is presenting with an acute femur fra cture requiring surgical intervention. I have discussed the case with the emergency room physician. Patient will be triaged to the Medical- Surgical floor for care. /[id number]/MODL
--- NOTE | 2017-10-18 00:27 | GCON ---
[f rep st] CONSULTATION CHIEF COMPLAINT: Left hip pain, status post fall. HISTORY OF PRESENT ILLNESS: Patient is an 82-year-old female, who states she tripped and fell tonigh t behind her couch, landing on her left hip. She states that she felt immediate pain in her left hip and was unable to bear weight. She denies any other injuries. She is currently lying in bed with h er left leg externally rotated and shortened. She states that her pain is controlled with medicine c urrently. She also reports that she did have a couple alcoholic drinks tonight and ate at 8 p.m., wa s her last meal for dinner. She was brought into the ER after the fall, where x-rays were taken and showed a left hip subtrochanteric femur fracture. PAST MEDICAL HISTORY: Pulmonary embolism, currently on Xarelto 2 times a day. Also wears oxygen 2 L nasal cannula due to the PE, hypertension, hypercholesterolemia, depression, asthma. PAST SURGICAL HISTORY: None. MEDICATIONS: Current medications, please see medication list in chart. ALLERGIES: Current allergies to medications none. FAMILY HISTORY: Noncontributory. SOCIAL HISTORY: She denies any recreational drugs or tobacco use. She does admit to alcohol. REVIEW OF SYSTEMS: A 10-point review was done. Negative for any other complaints, concerns or histo ry. PHYSICAL EXAMINATION: GENERAL: Pleasant, NAD. HEENT: NC/AT, EOMI, PERRLA. Ears and nares patent without discharge. Oropharynx is clear. NECK: Nontender to palpation, full range of motion. MUSCU LOSKELETAL: Exam of the left lower extremity, the hip on the left side is without erythema, ecchymos is, color, or edema. Her leg is externally rotated and shortened. She does have discomfort with mov ement of the hip. Normal sensation to light touch in the left lower extremity. Distal pulse present in the left lower extremity. SKIN: Warm, dry, and intact. NEUROLOGIC: Nonfocal. No deficits not ed. PSYCHIATRIC: Alert and orient x3. Appropriate mood and affect. RADIOGRAPHS: X-rays reviewed of the left hip show a left subtrochanteric femur fracture. IMPRESSION: Left hip subtrochanteric femur fracture. PLAN: Patient was seen and examined, and it was reviewed with Dr. Coon, who also looked at the imag es. The patient will need a surgical operation to help stabilize the fracture. There is also noted on x-ray that she has associated hip osteoarthritis and protrusio acetabuli. It was discussed with t he patient that the most appropriate surgery would be a total hip replacement due to the combination of arthritis and fracture. A Gabrielle total hip replacement will be set up for tomorrow, October 18t h, along with bone grafting of the acetabulum and a cerclage wire around the greater trochanter. All the risks, benefits, and complications were explained to the patient. She will be made n.p.o. after midnight. TEDs and SCDs were ordered for her bilateral lower extremities. She will be seen by Dr. Coon tomorrow morning and consented for surgery. /[id number]/MODL
[2017-10-18 04:52] LABS: % IMMATURE GRANULYOCYTES 0.6 % (0.0-1.1); ABSOLUTE IMMATURE GRANULOCYTES 0.04 10^3/uL (0.00-0.10); ADD DIFF? NO; ADD MORPH? NO; ADD SCAN? NO; ATYPICAL LYMPHOCYTE FLAG 10 (0-99); FRAGMENT RBC FLAG 0 (0-99); HEMATOCRIT 28.2 % (38.0-47.0); HEMOGLOBIN 9.6 g/dL (12.6-16.3); LEFT SHIFT FLG 0 (0-99); LIPEMIA HEMOLYSIS FLAG 90 (0-99); MEAN CELL HEMOGLOBIN 33.1 pg (27.9-34.1); MEAN CELL VOLUME 97.2 fL (81.5-99.8); MEAN PLATELET VOLUME 9.6 fL (8.7-11.7); PLATELET CLUMPS FLAG 10 (0-99); PLATELET COUNT 194 10^3/uL (150-400); RED CELL DISTRIBUTION WIDTH 12.6 % (11.5-15.2)
[2017-10-18 05:19] LABS: ANION GAP 11 mEq/L (8-16); CALCIUM 8.4 mg/dL (8.5-10.4); CARBON DIOXIDE 22 mEq/l (22-31); CHLORIDE 108 mEq/L (97-110); CREATININE 0.7 mg/dL (0.6-1.0); GLOMERULAR FILTRATION RATE > 60; GLUCOSE 93 mg/dL (70-100); MAGNESIUM 1.7 mg/dL (1.6-2.3); POTASSIUM 3.9 mEq/L (3.5-5.2); SODIUM 141 mEq/L (134-144)
[2017-10-18] MEDS: HYDROmorphONE/DILAUDID 1 MG/ML INJ IVP PRN (05:55)
[2017-10-18] MEDS ORDERED: ceFAZolin 2 GM/SWFI 2 GM/20 ML SYR IVP ONE (06:00)
--- NOTE | 2017-10-18 07:11 | PDMN ---
Medical Necessity Medical necessity: est lo>2mn for eval and rx of acute femur fx r/t fall likely r/t etoh intoxication; admit for anticipated surgical repair w/management of anticoagulation; hx htn, depression, etoh abuse , and recent PE; per order and H &P 10/17/17
[2017-10-18] MEDS ORDERED: FLUTICASONE/SALMETER 100/50MCG DISKUS IH PRN (09:02)
[2017-10-18] MEDS ORDERED: NON-FORMULARY NEW DRUG (Losartan Potassium [Losartan Potassium] 100 MG) PO SCH (09:15)
--- NOTE | 2017-10-18 09:46 | ASMTCMCOM ---
CM Note CM Note Notes: Chart reviewed. Patient to have surgical hip replacement today. She is on CIWA. She currently lives independently with her . Uses home oxygen. Needs to be determined. CM to follow. Date Signed: 10/18/2017 09:46 AM Electronically Signed By:Angelina Luis RN
[2017-10-18] MEDS: ACETAMINOPHEN 325 MG TAB PO SCH ×2 (09:52→16:32)
[2017-10-18] MEDS: amLODIPine BESYLATE 5 MG TAB PO SCH (09:53)
[2017-10-18] MEDS: LOSARTAN POTASSIUM 50 MG TAB PO SCH (09:53)
[2017-10-18] MEDS: oxyCODONE IR 5 MG TAB PO PRN ×3 (09:54→16:32)
[2017-10-18] MEDS: SERTRALINE HCL 50 MG TAB PO SCH (09:54)
[2017-10-18] MEDS ORDERED: BISACODYL 10 MG SUPP PR PRN (10:44)
[2017-10-18] MEDS ORDERED: LACTULOSE 20 GM/30 ML UDCUP PO PRN (10:44)
[2017-10-18] MEDS ORDERED: MAGNESIUM HYDROXIDE 30 ML UDCUP PO PRN (10:44)
[2017-10-18] MEDS ORDERED: POLYETHYLENE GLYCOL 3350 17 GM PKT PO PRN (10:44)
[2017-10-18] MEDS: METHOCARBAMOL 750 MG TAB PO PRN ×2 (11:11→16:32)
[2017-10-18] MEDS: PHYTONADIONE 2.5 MG/2.5 ML ORAL UDL PO SCH ×2 (11:19→20:32)
[2017-10-18] MEDS: PANTOPRAZOLE SODIUM 40 MG TAB PO SCH (11:26)
[2017-10-18] MEDS: traMADol 50 MG TAB PO PRN ×2 (11:29→20:21)
--- NOTE | 2017-10-18 13:03 | HOSPPROG ---
Hospitalist Progress Note Assessment/Plan: 82 year old female presents emergency room after suffering a mechanical fall. 1st encounter, chart reviewed. Discussed with Dr. Coon. # acute femur fracture Require surgical intervention Continue supportive care # chronic anticoagulation For treatment of PE Patient on Xarelto Medication held No bridge therapy indicated at this time Continue to hold until after surgical intervention # elevated INR Will give 5 vitamin K twice daily today Recheck INR in the a.m. If greater than 1.5 transfuse 2 U of FFP Reviewed with RN # anemia In the setting of acute fracture Recheck labs after surgery # pain Continue supportive care Pain medication # alcohol abuse Patient denies having any withdrawal in the past Continue CIWA No signs of withdrawal at this point # disposition Patient will require fpc rehabilitation Plan for surgical intervention in a.m. A.m. labs Subjective: Feeling well. Still having significant pain. No other specific issues. Objective: Vital Signs Temp Pulse Resp BP Pulse Ox 37.0 C 84 17 149/80 H 96 10/18/17 08:08 10/18/17 08:08 10/18/17 08:08 10/18/17 08:08 10/18/17 08:08 Laboratory Results 10/18/17 04:39 10/18/17 04:39 10/17/17 10/18/17 10/19/17 05:59 05:59 05:59 Intake Total 750 Output Total 700 400 Balance 50 -400 PT 29.2 SEC (12.0-15.0) H 10/17/17 21:00 INR 2.77 (0.83-1.16) H 10/17/17 21:00 - Physical Exam Constitutional: no apparent distress, appears nourished, uncomfortable Eyes: PERRL, anicteric sclera, EOMI Ears, Nose, Mouth, Throat: moist mucous membranes, hearing normal, ears appear normal Cardiovascular: regular rate and rhythym, No JVD, No edema Respiratory: no respiratory distress, no rales or rhonchi, reduced air movement Gastrointestinal: normoactive bowel sounds, No tenderness, No ascites Skin: warm, normal color, No erythema Musculoskeletal: joint tenderness, pain with ROM, generalized weakness Neurologic: AAOx3 Psychiatric: interacting appropriately, not anxious, not encephalopathic, thought process linear ICD10 Worksheet Patient Problems: Problems Problem Status Onset Fracture of pubic ramus Acute Left hip pain Acute Bilateral pulmonary embolism Acute Hip fracture Acute
[2017-10-18] MEDS: THIAMINE HCL 500 MG in NS 100 ML IV SCH (20:18)
[2017-10-18] MEDS: SENNOSIDES/DOCUSATE SODIUM TAB PO SCH (20:21)
[2017-10-19] MEDS: ACETAMINOPHEN 325 MG TAB PO SCH ×4 (00:16→20:54)
[2017-10-19] MEDS: METHOCARBAMOL 750 MG TAB PO PRN (00:17)
[2017-10-19] MEDS: oxyCODONE IR 5 MG TAB PO PRN ×3 (00:17→20:54)
[2017-10-19] MEDS ORDERED: ceFAZolin 2 GM in D5W 100 ML IV SCH (00:30)
[2017-10-19] MEDS: traMADol 50 MG TAB PO PRN (04:14)
[2017-10-19 05:41] LABS: % IMMATURE GRANULYOCYTES 0.7 % (0.0-1.1); ABSOLUTE IMMATURE GRANULOCYTES 0.04 10^3/uL (0.00-0.10); ADD DIFF? NO; ADD MORPH? NO; ADD SCAN? NO; ATYPICAL LYMPHOCYTE FLAG 20 (0-99); FRAGMENT RBC FLAG 0 (0-99); HEMATOCRIT 27.3 % (38.0-47.0); HEMOGLOBIN 9.2 g/dL (12.6-16.3); LEFT SHIFT FLG 0 (0-99); LIPEMIA HEMOLYSIS FLAG 80 (0-99); MEAN CELL HEMOGLOBIN 33.1 pg (27.9-34.1); MEAN CELL HEMOGLOBIN CONCENTR. 33.7 g/dL (32.4-36.7); MEAN CELL VOLUME 98.2 fL (81.5-99.8); PLATELET CLUMPS FLAG 10 (0-99); PLATELET COUNT 176 10^3/uL (150-400); RED BLOOD CELL COUNT 2.78 10^6/uL (4.18-5.33); RED CELL DISTRIBUTION WIDTH 12.7 % (11.5-15.2)
[2017-10-19 05:49] LABS: INR 1.18 (0.83-1.16); PROTIME(PATIENT) 15.2 SEC (12.0-15.0)
[2017-10-19 06:19] LABS: ANION GAP 9 mEq/L (8-16); CALCIUM 8.6 mg/dL (8.5-10.4); CARBON DIOXIDE 26 mEq/l (22-31); CHLORIDE 104 mEq/L (97-110); CREATININE 0.7 mg/dL (0.6-1.0); GLOMERULAR FILTRATION RATE > 60; GLUCOSE 98 mg/dL (70-100); MAGNESIUM 1.7 mg/dL (1.6-2.3); POTASSIUM 4.1 mEq/L (3.5-5.2); SODIUM 139 mEq/L (134-144)
[2017-10-19] MEDS: SENNOSIDES/DOCUSATE SODIUM TAB PO SCH ×2 (08:19→20:55)
[2017-10-19] MEDS: SERTRALINE HCL 50 MG TAB PO SCH (08:20)
[2017-10-19] MEDS: LOSARTAN POTASSIUM 50 MG TAB PO SCH (08:20)
[2017-10-19] MEDS: amLODIPine BESYLATE 5 MG TAB PO SCH (08:20)
[2017-10-19] MEDS: PANTOPRAZOLE SODIUM 40 MG TAB PO SCH (08:21)
--- NOTE | 2017-10-19 08:55 | SOAPPROG ---
SOAP Progress Note Assessment/Plan: Assessment/Plan: L hip subtrochanteric femur fracture HOD#2 - Remain NPO - ROSA scheduled for this afternoon - Continue pain management - PT/OT post-operatively - Hold anti-coagulation until post-op - SCDs/TEDs for mechanical prophylaxis 10/19/17 08:53 Objective: Vital Signs Temp Pulse Resp BP Pulse Ox 36.9 C 84 18 150/81 H 96 10/19/17 07:32 10/19/17 07:32 10/19/17 07:32 10/19/17 07:32 10/19/17 07:32 Laboratory Results 10/19/17 05:23 10/19/17 05:23 10/18/17 10/19/17 10/20/17 05:59 05:59 05:59 Intake Total 750 100 Output Total 700 1100 Balance 50 -1000 PT 15.2 SEC (12.0-15.0) H D 10/19/17 05:23 INR 1.18 (0.83-1.16) H 10/19/17 05:23 Physical Exam - Physical Exam General Appearance: alert, no apparent distress Cardiac/Chest: normal peripheral pulses Skin: normal color, warm/dry Extremities: normal capillary refill, other (LLE internally rotated, TTP throughout L hip), No pedal edema, No calf tenderness, No Carl's sign Neuro/Psych: no motor/sensory deficits (pt able to wiggle toes and ankle of the LLE well), alert, normal mood/affect, oriented x 3 ICD10 Worksheet Patient Problems: Problems Problem Status Onset Hip fracture Acute Bilateral pulmonary embolism Acute Fracture of pubic ramus Acute Left hip pain Acute
[2017-10-19] MEDS ORDERED: NON-FORMULARY NEW DRUG (Omeprazole [Prilosec 20 Mg] 20 MG) PO SCH (09:00)
[2017-10-19] MEDS ORDERED: PANTOPRAZOLE SODIUM 40 MG TAB PO SCH (09:00)
[2017-10-19] MEDS ORDERED: TRANEXAMIC ACID 1,000 MG in NS 100 ML IV ONE (13:30)
[2017-10-19] MEDS ORDERED: ceFAZolin 2 GM/SWFI 2 GM/20 ML SYR IVP ONE (13:30)
[2017-10-19] MEDS ORDERED: ROPIVACAINE 0.2% 80 MG, EPINEPHrine 0.2 MG, KETOROLAC TROMETHAMINE 30 MG, morphINE 10 M... IU ONE (13:30)
[2017-10-19] MEDS ORDERED: ceFAZolin 1 GM/5 ML SYR ONE (14:38)
[2017-10-19] MEDS ORDERED: fentaNYL 250 MCG/5 ML INJ ONE (15:07)
[2017-10-19] MEDS ORDERED: ROCURONIUM 100 MG/10 ML VIAL ONE (15:07)
[2017-10-19] MEDS ORDERED: PROPOFOL 200 MG/20 ML VIAL ONE (15:07)
[2017-10-19] MEDS ORDERED: MIDAZOLAM 2 MG/2 ML VIAL ONE (15:07)
[2017-10-19] MEDS ORDERED: LIDOCAINE 2% 5 ML SDV ONE (15:07)
[2017-10-19] MEDS ORDERED: DEXAMETHASONE 4 MG/ML VIAL ONE (15:07)
--- NOTE | 2017-10-19 15:23 | PDANEPAE ---
ANE Past Medical History - Pulmonary History Hx Oxygen in Use at Home: Yes O2 in Use at Home (L/minute): 2 Hx Sleep Apnea: No Sleep Apnea Screening Result - Last Documented: Positive - Endocrine History Hx Diabetes: No - Chronic Pain History Chronic Pain: Yes ANE Review of Systems Review of Systems: ANE Patient History - Allergies Allergies/Adverse Reactions: No Known Allergies Allergy (Unverified 10/17/17 20:40) - Home Medications Home Medications: Atorvastatin Calcium [Lipitor 20 mg (*)] 20 mg PO Q2D 02/26/10 [Last Taken 10/17] Fluticasone/Salmeter 100/50Mcg [Advair 100/50 (*)] 1 puffs IH DAILY PRN [Last Taken 09/27/17 08:00] Omeprazole [Prilosec 20 mg] 20 mg PO DAILY 09/11/16 [Last Taken 10/17/17] Losartan Potassium 100 mg PO DAILY 09/27/17 [Last Taken 10/17/17] Sertraline HCl [Zoloft 50mg (*)] 50 mg PO DAILY 09/27/17 [Last Taken 10/17/17] oxyCODONE IR [Oxycodone Ir (*)] 5 mg PO TID PRN 09/27/17 [Last Taken 10/17/17] traMADol [Ultram 50 mg (*)] 50 mg PO Q4 PRN 09/27/17 [Last Taken 09/27/17] Rivaroxaban [Xarelto 15mg (*)] 15 mg PO BIDMEAL 10/17/17 [Last Taken 10/17/17] - NPO status NPO Since - Liquids (Date): 10/19/17 NPO Since - Liquids (Time): 00:00 NPO Since - Solids (Date): 10/19/17 NPO Since - Solids (Time): 00:00 - Smoking Hx Smoking Status: Former smoker ANE Labs/Vital Signs - Labs Result Diagrams: 10/19/17 05:23 10/19/17 05:23 - Vital Signs Blood Pressure: 141/80 Heart Rate: 85 Respiratory Rate: 17 O2 Sat (%): 93 Height: 167.64 cm Weight: 61.235 kg ANE Physical Exam - Airway Neck exam: FROM Mallampati Score: Class 2 - Pulmonary Pulmonary: no respiratory distress - Cardiovascular Cardiovascular: regular rate and rhythym - ASA Status ASA Status: III ANE Anesthesia Plan Anesthesia Plan: general endotracheal anesthesia
--- NOTE | 2017-10-19 17:35 | HOSPPROG ---
Hospitalist Progress Note Assessment/Plan: 82 year old female with hx of PE on AC presents emergency room after suffering a mechanical fall with femur fracture. # acute femur fracture -plan to OR with ortho today. Will need pt/ot involved post op and patient may require dc to snf pending progress # subacute PE: occurred on 09/27, will need to resume AC as soon as safe to do so post surgical intervention, will need to discuss with ortho when OK to resume , presumably on 10/20. INR reversed. # anemia In the setting of acute fracture, will follow # pain Continue supportive care Pain medication, pain currently controlled except with motion # alcohol abuse Patient denies having any withdrawal in the past Continue CIWA No signs of withdrawal at this point # disposition Patient will marianley require retirement rehabilitation--CM involved pt/ot to be involved post op Subjective: no significant overnight events, patient currently awaiting surgery , pain controlled unless she has much movement Objective: Vital Signs Temp Pulse Resp BP Pulse Ox 37.0 C 85 17 141/80 H 93 10/19/17 14:23 10/19/17 15:24 10/19/17 15:24 10/19/17 15:24 10/19/17 15:24 Laboratory Results 10/19/17 05:23 10/19/17 05:23 10/18/17 10/19/17 10/20/17 05:59 05:59 05:59 Intake Total 750 100 380 Output Total 700 1100 250 Balance 50 -1000 130 PT 15.2 SEC (12.0-15.0) H D 10/19/17 05:23 INR 1.18 (0.83-1.16) H 10/19/17 05:23 awake alert anicteric op clear rrr no mrg cta b soft nt nd no cce warm dry well perfused ICD10 Worksheet Patient Problems: Problems Problem Status Onset Hip fracture Acute Bilateral pulmonary embolism Acute Fracture of pubic ramus Acute Left hip pain Acute
[2017-10-19] MEDS ORDERED: SUGAMMADEX SODIUM 200 MG/2 ML VIAL IVP ONE (18:08)
[2017-10-19] MEDS ORDERED: ONDANSETRON 4 MG/2 ML VIAL IVP PRN (18:50)
[2017-10-19] MEDS ORDERED: ALBUTEROL 3 ML DEYVIAL IH PRN (18:50)
[2017-10-19] MEDS ORDERED: NALOXONE HCL 0.4 MG/ML INJ IVP PRN (18:50)
--- NOTE | 2017-10-19 18:50 | POSTANESTH ---
Post Anesthetic Evaluation Cardiovascular Status: Similar to Pre-Op Cond Respiratory Status: Similar to Pre-op Cond. Level of Consciousness/Mental Status: Can Participate in Eval Pain Control: Adequate, Prn Tx Ordered Nausea/Vomiting Control: Adequate, Prn Tx Ordered Complications Possibly Related to Anesthesia: None Noted
[2017-10-19] MEDS ORDERED: fentaNYL 100 MCG/2 ML INJ ONE (19:03)
[2017-10-19] MEDS: fentaNYL 100 MCG/2 ML INJ IVP PRN ×2 (19:05→19:34)
[2017-10-19] MEDS: HYDROmorphONE/DILAUDID 1 MG/ML INJ IVP PRN (20:37)
[2017-10-19] MEDS: THIAMINE HCL 500 MG in NS 100 ML IV SCH (20:55)
[2017-10-19] MEDS ORDERED: LR 1,000 ML IV SCH (21:00)
[2017-10-20] MEDS: ACETAMINOPHEN 325 MG TAB PO SCH ×4 (00:28→17:38)
[2017-10-20] MEDS: ceFAZolin 2 GM/SWFI 2 GM/20 ML SYR IVP SCH ×2 (00:29→09:14)
[2017-10-20] MEDS: oxyCODONE IR 5 MG TAB PO PRN ×5 (00:32→20:46)
--- NOTE | 2017-10-20 02:23 | GOP ---
[f rep st] OPERATIVE REPORT DATE OF OPERATION: 10/17/2017 SURGEON: Mayo Coon MD MANAGEMENT LECTURER: Josr Amaya. ANESTHESIA: General. PREOPERATIVE DIAGNOSIS: 1. Subtrochanteric left femur fracture. 2. Left hip osteoarthritis. 3. Acetabular protrusio. POSTOPERATIVE DIAGNOSIS: 1. Subtrochanteric left femur fracture. 2. Left hip osteoarthritis. 3. Acetabular protrusio. PROCEDURE PERFORMED: FINDINGS: ESTIMATED BLOOD LOSS: 600 cc. DESCRIPTION OF PROCEDURE: The patient was taken to the operating room, administered general anesthes ia, placed in the right lateral decubitus position, had her left hip and lower extremity prepped and draped in normal sterile fashion. A posterolateral incision was made through dermal subcutaneous tis sues. Sharp and blunt dissection was performed down to the level of the IT band. Bleeders were caut erized. The IT valve was split longitudinally. The fracture was palpated. The greater trochanteric fracture segment was elevated proximally. The lesser trochanteric fracture segment was displaced me dially. The shaft segment was cleaned up. A starting reamer was placed down through the shaft. We then exposed the acetabulum. The posterior capsule was incised. Small bone fragments were removed. The head and neck segment was cut down with oscillating saw. A corkscrew was placed into the head n bernard and the head and neck were dislocated. The acetabulum was then exposed. Retractors were positio caroline. Reaming of the acetabulum was performed with a size 48, extended up to a size 57. We tried not to ream medially because of the protrusio. The trial 58 cup was impacted in position. The cup fit well. We elected to remove the trial cup. We impacted the Tritanium hemispherical cluster hole zay l. We seated this so that we could still place a little bit of bone graft medially. Prior to placin g the shell, we decorticated medially with a drill bit. The shell was then secured further with [facility] ellous screws, measured 6.5 mm x 40 mm in length, 6.5 mm x 35 mm in length, and 6.5 x 25 mm in length . The trial liner was then put in position. We then went back to the femur. We elected to utilize a synagogue modular hip system. The femur was reamed up to a size 14. The 14 trial lead was impac nidia into position. A 0 head was initially utilized. We went up to a +5. The implant finally select ed was the Baptism modular hip stem 155 mm x 14 mm diameter, Baptism modular hip system 19 mm +20 mm body, and L-fit anatomic V40 femoral head. The stem was initially placed. This was then ove r-reamed to fit the modular body. The body was then impacted into position. The L40 36 mm +5 offset head was then impacted onto the trunnion. This was then reduced. The cable system was then utilize d to fixate the fracture back to the body of the implant. The cables were brought through the latera l holes of the body of the implant. They were then cerclaged through the medial trochanteric segment . They were then brought around the lateral trochanteric segment and brought back to themselves. Th e sleeves were adjusted to the beaded cable. They were then tensioned in succession and the sleeves were then crimped. The cables were cut down to the appropriate length. Three [place] cables were utilized. These were 2 mm cables with a bead and sleeve. Thorough lavage was then performed with n ormal saline. Closure was performed of the iliotibial band and gluteal fascia with a 0 Vicryl suture , followed by closure of the subcutaneous tissue with 2-0 Vicryl suture, followed by closure of the d ermis with heladio. The drain was placed deeply. It was hooked up. The sterile compression dressin g was applied. The patient tolerated the procedure well, was transferred back to recovery in stable condition. There were no operative complications. The Baptism modular hip system is from [employer]. OPERATIVE PROCEDURE: 1. Open treatment of subtrochanteric femur fracture. 2. Left total hip arthroplasty. 3. Bone grafting of protrusio acetabuli. COMPLICATIONS: None. /[id number]/MODL
[2017-10-20 05:03] LABS: % IMMATURE GRANULYOCYTES 0.4 % (0.0-1.1); ABSOLUTE IMMATURE GRANULOCYTES 0.03 10^3/uL (0.00-0.10); ADD DIFF? NO; ADD MORPH? NO; ADD SCAN? NO; ATYPICAL LYMPHOCYTE FLAG 0 (0-99); FRAGMENT RBC FLAG 0 (0-99); HEMATOCRIT 26.5 % (38.0-47.0); HEMOGLOBIN 9.3 g/dL (12.6-16.3); LEFT SHIFT FLG 0 (0-99); LIPEMIA HEMOLYSIS FLAG 90 (0-99); MEAN CELL HEMOGLOBIN 32.1 pg (27.9-34.1); MEAN CELL HEMOGLOBIN CONCENTR. 35.1 g/dL (32.4-36.7); MEAN CELL VOLUME 91.4 fL (81.5-99.8); MEAN PLATELET VOLUME 9.9 fL (8.7-11.7); PLATELET CLUMPS FLAG 0 (0-99); PLATELET COUNT 151 10^3/uL (150-400); RED CELL DISTRIBUTION WIDTH 16.9 % (11.5-15.2)
[2017-10-20 05:27] LABS: ANION GAP 8 mEq/L (8-16); CALCIUM 7.9 mg/dL (8.5-10.4); CARBON DIOXIDE 25 mEq/l (22-31); CHLORIDE 105 mEq/L (97-110); CREATININE 0.8 mg/dL (0.6-1.0); GLOMERULAR FILTRATION RATE > 60; GLUCOSE 127 mg/dL (70-100); MAGNESIUM 1.5 mg/dL (1.6-2.3); POTASSIUM 4.6 mEq/L (3.5-5.2); SODIUM 138 mEq/L (134-144)
[2017-10-20] MEDS ORDERED: ceFAZolin 2 GM/SWFI 2 GM/20 ML SYR IVP ONE (08:30)
--- NOTE | 2017-10-20 08:37 | SOAPPROG ---
SOAP Progress Note Assessment/Plan: Assessment/Plan: L hip subtrochanteric femur fracture s/p L ROSA with bone grafting by Dr. Coon POD#1 - Continue post-operative dose of antibiotics - Posterior hip precautions with abduction pillow - TDWB LLE - Continue pain management - PT/OT - Monitor drain output - SCDs/TEDs for mechanical prophylaxis 10/19/17 08:53 10/20/17 08:31 Subjective: Pt states she is doing well, pain is well controlled. Pt denies fever, chills, chest pain, SOB, abdominal pain, N/V/D, numbness, tingling and calf pain. Objective: Vital Signs Temp Pulse Resp BP Pulse Ox 36.9 C 83 16 129/70 H 97 10/20/17 08:00 10/20/17 08:00 10/20/17 08:00 10/20/17 08:00 10/20/17 08:00 Laboratory Results 10/20/17 04:48 10/20/17 04:48 10/19/17 10/20/17 10/21/17 05:59 05:59 05:59 Intake Total 100 3490 Output Total 1100 1310 440 Balance -1000 2180 -440 PT 15.2 SEC (12.0-15.0) H D 10/19/17 05:23 INR 1.18 (0.83-1.16) H 10/19/17 05:23 Physical Exam - Physical Exam General Appearance: alert, no apparent distress Cardiac/Chest: normal peripheral pulses Skin: normal color, warm/dry, other (post-operative dressing c/d/i) Extremities: normal inspection, normal capillary refill, other (Drain intact L hip), No pedal edema, No calf tenderness, No swelling, No Carl's sign Neuro/Psych: no motor/sensory deficits, alert, normal mood/affect, oriented x 3 ICD10 Worksheet Patient Problems: Problems Problem Status Onset Hip fracture Acute Bilateral pulmonary embolism Acute Fracture of pubic ramus Acute Left hip pain Acute
[2017-10-20] MEDS: ATORVASTATIN CALCIUM 20 MG TAB PO SCH (09:14)
[2017-10-20] MEDS: amLODIPine BESYLATE 5 MG TAB PO SCH (09:14)
[2017-10-20] MEDS: SERTRALINE HCL 50 MG TAB PO SCH (09:15)
[2017-10-20] MEDS: PANTOPRAZOLE SODIUM 40 MG TAB PO SCH (09:15)
[2017-10-20] MEDS: LOSARTAN POTASSIUM 50 MG TAB PO SCH (09:15)
[2017-10-20] MEDS: SENNOSIDES/DOCUSATE SODIUM TAB PO SCH ×2 (09:15→23:58)
[2017-10-20] MEDS: traMADol 50 MG TAB PO PRN (10:07)
--- NOTE | 2017-10-20 11:42 | HOSPPROG ---
Hospitalist Progress Note Assessment/Plan: 82 year old female with hx of PE on AC presents emergency room after suffering a mechanical fall with femur fracture. Today is my first encounter w the patient , chart reviewed. # acute subtrochanteric left femur fracture -s/p athroplasty and femur repair/POD #1 -plan to OR with ortho today. Will need pt/ot involved post op and patient may require dc to snf pending progress # subacute PE: occurred on 09/27 INR was reversed -will need to resume Xarelto if ok with orthopedics -will need daily dose of 20 mg # anemia In the setting of acute fracture, will follow # pain had oxy IR tid prn for pain, increased to q 4 hours # alcohol abuse Patient denies having any withdrawal in the past/ alcohol level was 205 on admission added low dose Librium No signs of withdrawal at this point # disposition Patient will require half-way rehabilitation Subjective: Alona is c/o pain with any activity. Objective: Vital Signs Temp Pulse Resp BP Pulse Ox 36.9 C 83 16 129/70 H 97 10/20/17 08:00 10/20/17 08:00 10/20/17 08:00 10/20/17 09:15 10/20/17 08:00 Laboratory Results 10/20/17 04:48 10/20/17 04:48 10/19/17 10/20/17 10/21/17 05:59 05:59 05:59 Intake Total 100 3490 Output Total 1100 1310 440 Balance -1000 2180 -440 PT 15.2 SEC (12.0-15.0) H D 10/19/17 05:23 INR 1.18 (0.83-1.16) H 10/19/17 05:23 - Physical Exam Constitutional: uncomfortable, No not in pain Eyes: PERRL Ears, Nose, Mouth, Throat: hearing normal Cardiovascular: regular rate and rhythym Respiratory: no respiratory distress Gastrointestinal: normoactive bowel sounds Skin: warm, No normal color (pale) Musculoskeletal: generalized weakness Neurologic: AAOx3 Psychiatric: interacting appropriately ICD10 Worksheet Patient Problems: Problems Problem Status Onset Hip fracture Acute Bilateral pulmonary embolism Acute Fracture of pubic ramus Acute Left hip pain Acute
[2017-10-20] MEDS: METHOCARBAMOL 750 MG TAB PO PRN (20:46)
[2017-10-21] MEDS: oxyCODONE IR 5 MG TAB PO PRN ×6 (00:53→21:56)
[2017-10-21] MEDS: ACETAMINOPHEN 325 MG TAB PO SCH ×4 (00:53→18:00)
--- NOTE | 2017-10-21 08:19 | HOSPPROG ---
Hospitalist Progress Note Assessment/Plan: 82 year old female with hx of PE on AC presents emergency room after suffering a mechanical fall with femur fracture. # acute subtrochanteric left femur fracture -s/p athroplasty and femur repair/POD #2 # subacute PE: occurred on 09/27 INR was reversed -Xarelto resumed # anemia In the setting of acute fracture, will follow # pain oxy IR # alcohol abuse Patient denies having any withdrawal in the past/ alcohol level was 205 on admission No signs of withdrawal # disposition Patient will require [facility]. She is still evaluating her options/ will aim for dc in the morning if stable. Subjective: Alona is concerned about where she will be doing rehab. Pain is well controlled. Objective: Vital Signs Temp Pulse Resp BP Pulse Ox 36.6 C 82 16 139/69 H 96 10/21/17 07:33 10/21/17 07:33 10/21/17 07:33 10/21/17 07:33 10/21/17 07:33 Laboratory Results 10/20/17 04:48 10/20/17 04:48 10/20/17 10/21/17 10/22/17 05:59 05:59 05:59 Intake Total 3490 1000 Output Total 1310 995 Balance 2180 5 PT 15.2 SEC (12.0-15.0) H D 10/19/17 05:23 INR 1.18 (0.83-1.16) H 10/19/17 05:23 - Physical Exam Constitutional: no apparent distress, appears nourished Eyes: PERRL Ears, Nose, Mouth, Throat: hearing normal Cardiovascular: regular rate and rhythym Respiratory: no respiratory distress Gastrointestinal: normoactive bowel sounds Skin: warm, other (left hip with drain in place) Musculoskeletal: generalized weakness Neurologic: AAOx3 Psychiatric: interacting appropriately ICD10 Worksheet Patient Problems: Problems Problem Status Onset Hip fracture Acute Bilateral pulmonary embolism Acute Fracture of pubic ramus Acute Left hip pain Acute
[2017-10-21] MEDS: PANTOPRAZOLE SODIUM 40 MG TAB PO SCH (08:53)
[2017-10-21] MEDS: LOSARTAN POTASSIUM 50 MG TAB PO SCH (08:54)
[2017-10-21] MEDS: amLODIPine BESYLATE 5 MG TAB PO SCH (08:54)
[2017-10-21] MEDS: RIVAROXABAN 20 MG TAB PO SCH (08:54)
[2017-10-21] MEDS: SERTRALINE HCL 50 MG TAB PO SCH (08:54)
[2017-10-21] MEDS: SENNOSIDES/DOCUSATE SODIUM TAB PO SCH ×2 (08:57→21:58)
--- NOTE | 2017-10-21 09:18 | SOAPPROG ---
SOAP Progress Note Assessment/Plan: Assessment:Left hip sibtrochanteric femur fracture s/p Left ROSA with bone grafting. POD#2. Plan:Continue posterior hip precautions with abduction pillow Monitor drain output SCD's and ALAN's for mechanical VTE prohylaxis TDWB LLE Continue pain management. Pt. requested her dose of Oxycodone be increased due to 5 mg not managing pain after PT. Continue PT/OT Subjective: Pt. states that her pain was worse yesterday after PT, she is feeling like she may need higher doses of pain medication. No calf pain, N/T of BLE, SOB, CP, fevers, SEWELL's. Objective: Pt. resting comfortably, in NAD. Answering questions appropriately. Respirations easy and unlabored, pt. is NVI BLE. NO calf pain or TTP. Bandages are in place and dry. Drain still in and continues to drain, was just changed prior to my arrival. 10/21/17 09:14 Objective: Vital Signs Temp Pulse Resp BP Pulse Ox 36.6 C 82 16 139/69 H 96 10/21/17 07:33 10/21/17 07:33 10/21/17 07:33 10/21/17 08:54 10/21/17 07:33 Laboratory Results 10/20/17 04:48 10/20/17 04:48 10/20/17 10/21/17 10/22/17 05:59 05:59 05:59 Intake Total 3490 1000 300 Output Total 1310 995 100 Balance 2180 5 200 PT 15.2 SEC (12.0-15.0) H D 10/19/17 05:23 INR 1.18 (0.83-1.16) H 10/19/17 05:23 ICD10 Worksheet Patient Problems: Problems Problem Status Onset Hip fracture Acute Bilateral pulmonary embolism Acute Fracture of pubic ramus Acute Left hip pain Acute
--- NOTE | 2017-10-21 09:52 | ASMTCMCOM ---
CM Note CM Note Notes: Non-triggering PASRR completed. Pt accepted at [facility] per Francoise Fernandez and they have insurance authorization. Today pt requests referrals to [facility] and [facility], [facility] can take pt w $165/day copay and at 11/01/16 pt $1500 deductible due; informed pt and she was not interested in [facility]. [facility] decision pending. Pt reports she knows nothing about [facility] and is encouraged to call Francoise who met w pt earlier this week. Pt has no friends/family who are able to visit SNFs (specifically [facility]) for her. CM to follow. D/c plan of care: SNF, when medically stable pt accepted at [facility]. Date Signed: 10/21/2017 09:52 AM Electronically Signed By:DOMINICK Garduno
--- NOTE | 2017-10-21 13:07 | ASMTCMCOM ---
CM Note CM Note Notes: Spoke with patient re: her choice of SNF. She has not called [facility] to ask questions about facility, so I encouraged her to do this. I also called and left a message for Graciela at [facility] to see if she could contact patient. I spoke with Uyen at [facility] [place] who anticipates that they can accept patient if [facility] authorizes. I sent updated notes to [facility]; per Uyen, they will begin authorization today. Hospitalist anticipates discharge tomorrow. Current CM Discharge plan: SNF TBD Date Signed: 10/21/2017 01:07 PM Electronically Signed By:Laura King RN
[2017-10-21] MEDS: ceFAZolin 2 GM/SWFI 2 GM/20 ML SYR IVP SCH (19:55)
[2017-10-22] MEDS: ACETAMINOPHEN 325 MG TAB PO SCH ×4 (00:18→18:40)
[2017-10-22 04:33] LABS: HEMATOCRIT 21.2 % (38.0-47.0); HEMOGLOBIN 7.1 g/dL (12.6-16.3)
[2017-10-22] MEDS: oxyCODONE IR 5 MG TAB PO PRN ×5 (06:19→22:35)
--- NOTE | 2017-10-22 07:52 | HOSPPROG ---
Hospitalist Progress Note Assessment/Plan: 82 year old female with hx of PE on AC presents emergency room after suffering a mechanical fall with femur fracture. # acute subtrochanteric left femur fracture -s/p athroplasty and femur repair/POD #3 # subacute PE: occurred on 09/27 INR was reversed -Xarelto resumed # anemia/acute blood loss In the setting of acute fracture, will follow # pain oxy IR # alcohol abuse Patient denies having any withdrawal in the past/ alcohol level was 205 on admission No signs of withdrawal -dc Librium # disposition: hopefully tomorrow, will transfuse a unit of PRBC's. reviewed risk and benefits w Alona and she would like to proceed w transfusion. Subjective: Alona is feeling well. Objective: Vital Signs Temp Pulse Resp BP Pulse Ox 37.1 C 82 16 140/95 H 98 10/22/17 00:00 10/22/17 00:00 10/22/17 00:00 10/22/17 00:00 10/22/17 00:00 Laboratory Results 10/22/17 04:20 10/20/17 04:48 10/21/17 10/22/17 10/23/17 05:59 05:59 05:59 Intake Total 1000 1100 Output Total 995 1380 30 Balance 5 -280 -30 PT 15.2 SEC (12.0-15.0) H D 10/19/17 05:23 INR 1.18 (0.83-1.16) H 10/19/17 05:23 - Physical Exam Constitutional: no apparent distress, appears nourished, not in pain Eyes: PERRL Ears, Nose, Mouth, Throat: hearing normal Cardiovascular: regular rate and rhythym Respiratory: no respiratory distress Gastrointestinal: normoactive bowel sounds Skin: warm, other (left upper thigh area w ecchymosis/ drain in place) Musculoskeletal: generalized weakness Neurologic: AAOx3 Psychiatric: interacting appropriately ICD10 Worksheet Patient Problems: Problems Problem Status Onset Hip fracture Acute Bilateral pulmonary embolism Acute Fracture of pubic ramus Acute Left hip pain Acute
[2017-10-22] MEDS ORDERED: ACETAMINOPHEN 325 MG TAB PO ONE (09:04)
--- NOTE | 2017-10-22 09:18 | ASMTCMCOM ---
CM Note CM Note Notes: Francoise Villegas left a VM stating they do have insurance auth, pt copay is $85 per day and $1500 deductible if not met yet. Date Signed: 10/22/2017 09:18 AM Electronically Signed By:DOMINICK Garduno
--- NOTE | 2017-10-22 09:23 | SOAPPROG ---
SOAP Progress Note Assessment/Plan: Assessment/Plan: L hip subtrochanteric femur fracture s/p L ROSA with bone grafting by Dr. Coon POD#3 - Posterior hip precautions with abduction pillow - TDWB LLE - Continue pain management - PT/OT - Remove drain today - Dressing change today - 1 Unit PRBCs - SCDs/TEDs for mechanical prophylaxis - Discharge to SNF, possibly tomorrow 10/19/17 08:53 10/20/17 08:31 10/22/17 09:20 Subjective: Pt states she is doing well, pain is minimal. Pt denies fever, chills, chest pain, SOB, abdominal pain, N/V/D, numbness, tingling, and calf pain. Objective: Vital Signs Temp Pulse Resp BP Pulse Ox 36.9 C 84 16 123/59 H 98 10/22/17 07:55 10/22/17 07:55 10/22/17 07:55 10/22/17 07:55 10/22/17 07:55 Laboratory Results 10/22/17 04:20 10/20/17 04:48 10/21/17 10/22/17 10/23/17 05:59 05:59 05:59 Intake Total 1000 1100 Output Total 995 1380 30 Balance 5 -280 -30 PT 15.2 SEC (12.0-15.0) H D 10/19/17 05:23 INR 1.18 (0.83-1.16) H 10/19/17 05:23 Physical Exam - Physical Exam General Appearance: alert, no apparent distress Cardiac/Chest: normal peripheral pulses Skin: normal color, warm/dry, other (incision site c/d/i) Extremities: normal inspection, normal capillary refill, No pedal edema, No calf tenderness, No swelling, No Carl's sign Neuro/Psych: no motor/sensory deficits, alert, normal mood/affect, oriented x 3 ICD10 Worksheet Patient Problems: Problems Problem Status Onset Hip fracture Acute Bilateral pulmonary embolism Acute Fracture of pubic ramus Acute Left hip pain Acute
[2017-10-22] MEDS: METHOCARBAMOL 750 MG TAB PO PRN (09:25)
[2017-10-22] MEDS: LOSARTAN POTASSIUM 50 MG TAB PO SCH (09:25)
[2017-10-22] MEDS: PANTOPRAZOLE SODIUM 40 MG TAB PO SCH (09:25)
[2017-10-22] MEDS: SERTRALINE HCL 50 MG TAB PO SCH (09:25)
[2017-10-22] MEDS: RIVAROXABAN 20 MG TAB PO SCH (09:25)
[2017-10-22] MEDS: ATORVASTATIN CALCIUM 20 MG TAB PO SCH (09:25)
[2017-10-22] MEDS: amLODIPine BESYLATE 5 MG TAB PO SCH (09:25)
--- NOTE | 2017-10-22 09:37 | ASMTCMCOM ---
CM Note CM Note Notes: Chart reviewed. Patient in need of transfusion today. DC postponed until tomorrow. She is agreeable to stay at [facility] and understands there is a copayment of 30 percent or 85.00 per day. CM will notify [facility] of delay. Graciela aware and she will arrange transportation for patient tomorow upon discharge. CM to follow. Date Signed: 10/22/2017 09:30 AM Electronically Signed By:Angelina Luis RN
[2017-10-22] MEDS: SENNOSIDES/DOCUSATE SODIUM TAB PO SCH ×2 (10:40→20:40)
[2017-10-22 13:58] VITALS: RESP 16
[2017-10-22] MEDS: MULTIVITAMINS W-MINERALS 1 EACH TAB PO SCH (15:45)
[2017-10-22] MEDS: THIAMINE HCL 100 MG TAB PO SCH (15:45)
[2017-10-23] MEDS: oxyCODONE IR 5 MG TAB PO PRN ×3 (03:10→14:07)
[2017-10-23] MEDS: ACETAMINOPHEN 325 MG TAB PO SCH ×3 (03:21→12:04)
[2017-10-23 06:14] LABS: HEMATOCRIT 25.2 % (38.0-47.0); HEMOGLOBIN 8.3 g/dL (12.6-16.3)
[2017-10-23] MEDS: LOSARTAN POTASSIUM 50 MG TAB PO SCH (08:26)
[2017-10-23] MEDS: MULTIVITAMINS W-MINERALS 1 EACH TAB PO SCH (08:27)
[2017-10-23] MEDS: RIVAROXABAN 20 MG TAB PO SCH (08:28)
[2017-10-23] MEDS: PANTOPRAZOLE SODIUM 40 MG TAB PO SCH (08:28)
[2017-10-23] MEDS: amLODIPine BESYLATE 5 MG TAB PO SCH (08:28)
[2017-10-23] MEDS: SERTRALINE HCL 50 MG TAB PO SCH (08:28)
[2017-10-23] MEDS: THIAMINE HCL 100 MG TAB PO SCH (08:28)
[2017-10-23 08:29] VITALS: BP 146/79
[2017-10-23] MEDS: SENNOSIDES/DOCUSATE SODIUM TAB PO SCH (08:33)
[2017-10-23 08:40] VITALS: PULSE 83; TEMP 98.6; O2SAT 92
--- NOTE | 2017-10-23 09:36 | HOSPPROG ---
Hospitalist Progress Note Assessment/Plan: 82 year old female with hx of PE on AC presents emergency room after suffering a mechanical fall with femur fracture. # acute subtrochanteric left femur fracture -s/p athroplasty and femur repair/POD #4 # subacute PE: occurred on 09/27 INR was reversed -Xarelto resumed # anemia/acute blood loss given a unit of PRBC's will recheck h/h to assure stability # pain oxy IR # alcohol abuse Patient denies having any withdrawal in the past/ alcohol level was 205 on admission No signs of withdrawal -dc Librium # disposition: To [facility] if h/h stable Subjective: Alona has no complaints, feeling well. Objective: Vital Signs Temp Pulse Resp BP Pulse Ox 37.0 C 83 16 146/79 H 92 10/23/17 08:00 10/23/17 08:00 10/23/17 08:00 10/23/17 08:28 10/23/17 08:00 Laboratory Results 10/23/17 05:45 10/20/17 04:48 10/22/17 10/23/17 10/24/17 05:59 05:59 05:59 Intake Total 1100 Output Total 1380 930 Balance -280 -930 PT 15.2 SEC (12.0-15.0) H D 10/19/17 05:23 INR 1.18 (0.83-1.16) H 10/19/17 05:23 - Physical Exam Constitutional: no apparent distress, appears nourished, not in pain Eyes: PERRL Ears, Nose, Mouth, Throat: hearing normal Cardiovascular: regular rate and rhythym Respiratory: no respiratory distress Skin: other (left hip w swelling) Musculoskeletal: generalized weakness Neurologic: AAOx3 Psychiatric: interacting appropriately, not anxious ICD10 Worksheet Patient Problems: Problems Problem Status Onset Hip fracture Acute Bilateral pulmonary embolism Acute Fracture of pubic ramus Acute Left hip pain Acute
[2017-10-23 09:53] LABS: HEMATOCRIT 26.8 % (38.0-47.0); HEMOGLOBIN 9.2 g/dL (12.6-16.3)
--- NOTE | 2017-10-23 12:02 | PDIAF ---
- Diagnosis Diagnosis: acute subtrochanteric hip fx, anemia, subacute PE Code Status: Full Code - Medication Management Discharge Medications: Medications to Continue on Transfer Atorvastatin Calcium [Lipitor 20 mg (*)] 20 mg PO Q2D 02/26/10 [Last Taken 10/17] Fluticasone/Salmeter 100/50Mcg [Advair 100/50 (*)] 1 puffs IH DAILY PRN [Last Taken 09/27/17 08:00] Omeprazole [Prilosec 20 mg] 20 mg PO DAILY 09/11/16 [Last Taken 10/17/17] amLODIPine BESYLATE [Norvasc 5 mg (*)] 5 mg PO DAILY #0 tab 09/14/16 [Last Taken 10/17/17] Acetaminophen [Tylenol 325mg (*)] 650 mg PO Q6 #0 tab 09/16/16 [Last Taken Unknown] Losartan Potassium 100 mg PO DAILY 09/27/17 [Last Taken 10/17/17] Sertraline HCl [Zoloft 50mg (*)] 50 mg PO DAILY 09/27/17 [Last Taken 10/17/17] traMADol [Ultram 50 mg (*)] 50 mg PO Q4 PRN 09/27/17 [Last Taken 09/27/17] Methocarbamol [Robaxin 750 mg (*)] 750 mg PO TID PRN tab 10/23/17 [Last Taken Unknown] Polyethylene Glycol 3350 [Miralax 17 gm (*)] 17 gm PO DAILY PRN pkt 10/23/17 [ Last Taken Unknown] Rivaroxaban [Xarelto] 20 mg PO DAILY@0800 tab 10/23/17 [Last Taken Unknown] Sennosides/Docusate Sodium [Senokot-S] 1 - 2 tab PO BID tab 10/23/17 [Last Taken Unknown] Thiamine HCl [Vitamin B-1] 100 mg PO DAILY tab 10/23/17 [Last Taken Unknown] oxyCODONE IR [Oxycodone Ir (*)] 5 - 10 mg PO Q4 PRN tab 10/23/17 [Last Taken Unknown] Discharge Medications: Refer to the Discharge Home Medication list for PRN reason. PICC Care - Routine: N/A - Orders Services needed: Physical Therapy, Occupational Therapy Diet Recommendation: no restrictions on diet Diet Texture: Regular Texture Diet Activity/Weight Bearing Restrictions: TDWB to LLE, use of posterior hip precautions w abductor pillow. Additional: F/u with Dr Coon in 1-2 weeks. - Labs/Radiology BMP Date: 10/26/17 HCT/HGB Date: 10/26/17 (q 3 days till stable) - Follow Up Care Current Providers and Referrals: Patient,NotPresent [Unknown] - As per Instructions Mayo Coon MD [Medical Doctor] - (Call the office to schedule a post- operative visit with Dr. Coon for 10-14 days after surgery. Call with any questions or concerns.)
--- NOTE | 2017-10-23 12:17 | ASDISCHSUM ---
Discharge Information Plan Status:SNF Medically Cleared to Leave:10/22/2017 Discharge Date:10/22/2017 CM D/C Disposition:Residential Facility ADT D/C Disposition:Residential Facility Projected Discharge Date:10/23/2017 11:00 AM Transportation at D/C:ALS/BLS Discharge Delay Reason: Follow-Up Date:10/23/2017 11:00 AM Discharge Slot: Final Diagnosis: Placement Information Referral Type:*[facility]/SNF Referral ID:[id number] Provider Name:[facility]/ [employer] Address 1:[address] [facility] [place] Phone Number: Address 2: Fax Number: [facility]:[place] Selection Factors: State:[place] Patient Contact Information Contact Name:MELINDA Relationship:Life Partner [email or web address] City:[place] Alternate Phone: State/Zip Code:[place] [address] Email: Financial Information Financial Class: Primary Plan Desc:MEDICARE IP PART B ONLY Primary Plan Number:[id number] Secondary Plan Desc:MAURICE PPO Secondary Plan Number:[id number] Assessment Information [facility] CM Progress Note CM Note CM Note Notes: Chart reviewed. Patient to have surgical hip replacement today. She is on CIWA. She currently lives independently with her . Uses home oxygen. Needs to be determined. CM to follow. Date Signed: 10/18/2017 09:46 AM Electronically Signed By:Angelina Luis RN [facility] CM Progress Note CM Note CM Note Notes: Non-triggering PASRR completed. Pt accepted at [facility] per Francoise Fernandez and they have insurance authorization. Today pt requests referrals to [facility] and [facility], [facility] can take pt w $165/day copay and at 11/01/16 pt $1500 deductible due; informed pt and she was not interested in [facility]. [facility] decision pending. Pt reports she knows nothing about [facility] and is encouraged to call Francoise who met w pt earlier this week. Pt has no friends/family who are able to visit SNFs (specifically [facility]) for her. CM to follow. D/c plan of care: SNF, when medically stable pt accepted at [facility]. Date Signed: 10/21/2017 09:52 AM Electronically Signed By:DOMINICK Garduno [facility] CM Progress Note CM Note CM Note Notes: Spoke with patient re: her choice of SNF. She has not called [facility] to ask questions about facility, so I encouraged her to do this. I also called and left a message for Graciela at [facility] to see if she could contact patient. I spoke with Uyen at [facility] [place] who anticipates that they can accept patient if [facility] authorizes. I sent updated notes to [facility]; per Uyen, they will begin authorization today. Hospitalist anticipates discharge tomorrow. Current CM Discharge plan: SNF TBD Date Signed: 10/21/2017 01:07 PM Electronically Signed By:Laura King RN [facility] CM Progress Note CM Note CM Note Notes: Francoise phililps [facility] left a VM stating they do have insurance auth, pt copay is $85 per day and $1500 deductible if not met yet. Date Signed: 10/22/2017 09:18 AM Electronically Signed By:DOMINICK Garduno [facility] CM Progress Note CM Note CM Note Notes: Chart reviewed. Patient in need of transfusion today. DC postponed until tomorrow. She is agreeable to stay at [facility] and understands there is a copayment of 30 percent or 85.00 per day. CM will notify [facility] of delay. [facility] CM to follow. Date Signed: 10/22/2017 09:30 AM Electronically Signed By:Angelina Luis RN Intervention Information
--- NOTE | 2017-10-23 12:33 | SOAPPROG ---
SOAP Progress Note Assessment/Plan: Assessment/Plan: L hip subtrochanteric femur fracture s/p L ROSA with bone grafting by Dr. Coon POD#4 - Posterior hip precautions with abduction pillow - TDWB LLE - Continue pain management - PT/OT - SCDs/TEDs for mechanical prophylaxis - Discharge to SNF today 10/19/17 08:53 10/20/17 08:31 10/22/17 09:20 10/23/17 12:31 Subjective: Pt states she is feeling really well and ready for discharge to SNF. Pt denies fever, chills, chest pain, SOB, abdominal pain, N/V/D, numbness, tingling and calf pain. Objective: Vital Signs Temp Pulse Resp BP Pulse Ox 37.0 C 83 16 146/79 H 92 10/23/17 08:00 10/23/17 08:00 10/23/17 08:00 10/23/17 08:28 10/23/17 08:00 Laboratory Results 10/23/17 09:47 10/20/17 04:48 10/22/17 10/23/17 10/24/17 05:59 05:59 05:59 Intake Total 1100 Output Total 1380 930 Balance -280 -930 PT 15.2 SEC (12.0-15.0) H D 10/19/17 05:23 INR 1.18 (0.83-1.16) H 10/19/17 05:23 Physical Exam - Physical Exam General Appearance: alert, no apparent distress Cardiac/Chest: normal peripheral pulses Skin: normal color, warm/dry, other (incision site c/d/i) Extremities: normal inspection, normal capillary refill, No pedal edema, No calf tenderness, No swelling, No Carl's sign Neuro/Psych: no motor/sensory deficits, alert, normal mood/affect, oriented x 3 ICD10 Worksheet Patient Problems: Problems Problem Status Onset Hip fracture Acute Bilateral pulmonary embolism Acute Fracture of pubic ramus Acute Left hip pain Acute
--- NOTE | 2017-10-23 12:43 | GDS ---
[f rep st] DISCHARGE SUMMARY DISCHARGE DIAGNOSES: 1. Acute sub-trochanteric femur fracture, status post repair. 2. Subacute pulmonary embolism that occurred in September of this year. 3. Acute blood loss anemia. 4. Pain due to the femur fracture. 5. History of alcohol use. CONSULTATION: Mayo Coon MD, with orthopedic services. HISTORY OF PRESENT ILLNESS: Briefly, the patient is an 82-year-old female with a recent diagnosis of a pulmonary embolus, on Xarelto. She presented to the emergency department after a mechanical fall where she tripped on what she believes was oxygen tubing. She fell behind her couch and sustained le ft hip pain. She was seen and evaluated in the emergency room and noted to have an acute femur fract ure. She went to surgery on 10/19/2017 and did well with surgery. Patient will be discharged to [facility] for rehabilitation. HOSPITAL COURSE PER PROBLEM: 1. Acute sub-trochanteric left femur fracture. She is postop day #4 for arthroplasty and femur repa ir. She is doing quite well. 2. Subacute pulmonary emboli. This occurred on September 27. Her Xarelto has been resumed at a lo wer dose of 20 mg daily. 3. Anemia, acute blood loss. She was given a unit of packed red blood cells. Hemoglobin and hemato crit are stable. 4. Pain due to hip surgery, well managed with OxyIR. 5. Alcohol use. She denies any withdrawal in the past. Her alcohol level was 205 on admission. Dea mann had no signs or symptoms of any type of withdrawal throughout her hospital stay. DISCHARGE CONDITION: Stable. Blood pressure is 146/79, heart rate 83, respiratory rate is 16, O2 sa t on room air 92%, and temperature 37 degrees Celsius. MEDICATIONS AT DISCHARGE: Please see the EMR. DISCHARGE INSTRUCTIONS: 1. Touchdown weightbearing to her left lower extremity as well as posterior hip precautions with an abductor pillow. 2. Further follow up with Dr. Coon. 3. If she develops fever, chills, chest pain, or shortness of breath, return to the ER. TIME SPENT: Greater than 30 minutes discharging and coordinating patient's care. /[id number]/MODL
== END 2017-10-23 14:11 | DRG 469 ==
LOC: EDUNIT# → F3N 22:30
PROVIDERS: ADMIT Hospitalist; ATTEND Internal Medicine
PROC: 0SRB0JZ Replacement of Left Hip Joint with Synthetic Substitute, Open Approach (ICD-10-PCS; principal; 2017-10-17)
PROC: 30233N1 Transfusion of Nonautologous Red Blood Cells into Peripheral Vein, Percutaneous Approach (ICD-10-PCS; 2017-10-22)
DX: S72.22XA Displaced subtrochanteric fracture of left femur, initial encounter for closed fracture (principal); W01.0XXA Fall on same level from slipping, tripping and stumbling without subsequent striking against object, initial encounter; Y92.008 Other place in unspecified non-institutional (private) residence as the place of occurrence of the external cause; D62 Acute posthemorrhagic anemia; I26.99 Other pulmonary embolism without acute cor pulmonale; M16.12 Unilateral primary osteoarthritis, left hip; M24.7 Protrusio acetabuli; E78.00 Pure hypercholesterolemia, unspecified; F10.10 Alcohol abuse, uncomplicated; I10 Essential (primary) hypertension; Z79.01 Long term (current) use of anticoagulants
CPT/HCPCS: 97110-GP; 97116-GP; 97162-GP; 97165-GO; 97535-GO; C1713; G0480; G8978-GP-CK; G8979-GP-CI; G8987-GO-CK; G8988-GO-CJ; J0171; J0690; J1100; J1170; J1885; J2250; J2405; J2704; J2795; J3010; J3411; P9016

== ENCOUNTER 2018-07-04 07:55 | Inpatient (IN) | payer OTHER ==
[2018-07-04] MEDS ORDERED: SODIUM BICARBONATE 50 MEQ/50 ML SYR ONE (08:00)
[2018-07-04] MEDS ORDERED: ATROPINE SULFATE 1 MG/10 ML SYR ONE (08:00)
[2018-07-04] MEDS ORDERED: EPINEPHrine 1 MG/10 ML SYR IVP ONE ×3 (08:00→09:35)
[2018-07-04] MEDS ORDERED: NOREPINEPHRINE BITARTRATE 4 MG in NS 500 ML IV SCH (08:00)
[2018-07-04] MEDS ORDERED: MAGNESIUM SULFATE 1 GM/2 ML VIAL ONE (08:00)
[2018-07-04] MEDS ORDERED: CALCIUM CHLORIDE 1 GM/10 ML INJ ONE (08:00)
--- NOTE | 2018-07-04 08:27 | EDPHY ---
H & P Time Seen by Provider: 07/04/18 07:55 - Medical/Surgical History Hx Asthma: No Hx Chronic Respiratory Disease: No Hx Diabetes: No Hx Cardiac Disease: No Hx Renal Disease: No Hx Cirrhosis: No Hx Alcoholism: No Hx HIV/AIDS: No Hx Splenectomy or Spleen Trauma: No Other PMH: Renal Stent, cataract surgery, right hip FX. htn - Social History Smoking Status: Former smoker Constitutional: Initial Vital Signs Heart Rate 106 H 07/04/18 08:02 Respiratory Rate 10 L 07/04/18 08:02 Blood Pressure 179/101 H 07/04/18 08:02 O2 Sat (%) 97 07/04/18 08:02 O2 Delivery Mode Ventilator Allergies/Adverse Reactions: No Known Allergies Allergy (Unverified 10/17/17 20:40) Home Medications: Medication Instructions Recorded Atorvastatin Calcium [Lipitor 20 20 mg PO Q2D 02/26/10 mg (*)] Fluticasone/Salmeter 100/50Mcg 1 puffs IH DAILY PRN 02/26/10 [Advair 100/50 (*)] Omeprazole [Prilosec 20 mg] 20 mg PO DAILY 09/11/16 amLODIPine BESYLATE [Norvasc 5 mg 5 mg PO DAILY #0 tab 09/14/16 (*)] Acetaminophen [Tylenol 325mg (*)] 650 mg PO Q6 #0 tab 09/16/16 Losartan Potassium 100 mg PO DAILY 09/27/17 Sertraline HCl [Zoloft 50mg (*)] 50 mg PO DAILY 09/27/17 traMADol [Ultram 50 mg (*)] 50 mg PO Q4 PRN 09/27/17 Methocarbamol [Robaxin 750 mg (*)] 750 mg PO TID PRN tab 10/23/17 Polyethylene Glycol 3350 [Miralax 17 gm PO DAILY PRN pkt 10/23/17 17 gm (*)] Rivaroxaban [Xarelto] 20 mg PO DAILY@0800 tab 10/23/17 Sennosides/Docusate Sodium 1 - 2 tab PO BID tab 10/23/17 [Senokot-S] Thiamine HCl [Vitamin B-1] 100 mg PO DAILY tab 10/23/17 oxyCODONE IR [Oxycodone Ir (*)] 5 - 10 mg PO Q4 PRN tab 10/23/17 Medical Decision Making - Diagnostics Imaging Results: Imaging Impressions Chest X-Ray 07/04/18 08:14 Impression: 1. Diffuse bilateral pulmonary consolidation. 2. Bilateral pneumothoraces, larger on the left and moderate on the right. 3. Intubation. Exam results discussed with Dr. Giron. Imaging: Discussed imaging studies w/ bingo caller Radiologist, I viewed and interpreted images myself ED Course/Re-evaluation: CHIEF COMPLAINT: Cardiac Arrest HISTORY OF PRESENT ILLNESS: The patient is an 83 y/o female arriving emergently via EMS in cardiac arrest. Around 07:15 this morning her family member noticed respiratory difficulties and possibly wheezing. He called EMS and during that phone call she became unresponsive so he initiated CPR. EMS arrived around 07: 25 and found her in v-fib with no pulses and continued CPR. They have administered 7 shocks and 6 rounds of epi with no change in rhythm or pulses. She is currently intubated with IO access and CPR is ongoing upon arrival. Per records, patient has a history of PE, hypertension, asthma. Unknown if still on Xarelto. REVIEW OF SYSTEMS: Unobtainable as patient is obtunded. PHYSICAL EXAM: HR, BP, O2 Sat, RR. Temp noted General Appearance: Obtunded, unconscious, pulseless and intubated. Head: Atraumatic without obvious injury Eyes: No pupillary reflex. Nose: Atraumatic, no rhinorrhea, clear. Throat: Intubated with tube in good position, blood in tube. Neck: C-collar in place. Respiratory: Equal breath sounds. Cardiovascular: Pulseless. Gastrointestinal: Abdomen is soft, no apparent trauma. Musculoskeletal: Atraumatic. Neurological: Obtunded Skin: No rashes. PAST MEDICAL HISTORY: 1. Pulmonary embolism - on Xarelto at some point 10/2017 2. Sub-trochanteric femur fracture 3. Blood loss anemia 4. History of alcohol abuse 5. Hypertension 6. Asthma 7. Depression Prior medical records reviewed including admission 09/27/17 for bilateral PEs, 10/17/17 for hip fracture. PAST SURGICAL HISTORY: 1. Femur fracture repair SOCIAL HISTORY: Lives in [place] with life partner. Daughter is POA and lives [id number]. DIAGNOSTICS/PROCEDURES/CRITICAL CARE TIME: The 12 lead EKG was interpreted by myself. Diffuse ST depression. Possible accelerated junctional escape rhythm. See hard copy and/or "tracemaster" electronic copy for interpretation. Chest x-ray: Large left-sided pneumothorax. Echocardiogram read by Dr. Pitts: Normal LV function, RV dilation with reduction in systolic function. No effusion. Critical care time spent by me, Dr. Giron, exclusively with this patient was 70 minutes, exclusive of PA time and exclusive of procedures. The organ system at risk was cardiovascular. Time spent in urgent assessment and serial reassessments of the patient, discussion with patient's family, consideration of interventions, imaging and lab result review, cardiology consultation, and stock raiser consultation. DIFFERENTIAL DIAGNOSIS: The differential diagnosis for the patient's presentation included but was not limited to myocardial ischemia, pulmonary embolus, infection, neurologic causes, intoxicants, electrolyte abnormalities, anemia. MEDICAL DECISION MAKING: RT at bedside. 0753: Met EMS upon arrival. CPR in progress and patient is intubated. Estimated patient went down around 07:15, about 40 minutes ago, after witnessed her struggling to breathe and possibly wheezing and her 80 y/o family member performed bystander CPR at that time. CPR ongoing by EMS since 07:25, now 20 minutes. She has been in v-fib and pulseless throughout EMS contact. She's received 7 shocks, 6 rounds of epinephrine, and 450mg of amiodarone en route. History of asthma per EMS. 0755: CPR held for rhythm check - asystole. Plan for ACLS protocols. 0756: 1mg IO epinephrine administered. Tube is being suctioned. . 0757: Pulse check - intermittent femoral pulse palpable, intermittent beats on monitor. CPR resumed. Norepinephrine ordered from pharmacy. 0758: Held CPR for pulse and rhythm check. Femoral pulse with ventricular escape beats in 30s. Resumed CPR. 1mg IV epinephrine administered. Plan for atropine. 0800: 1mg IV Atropine, amp calcium, amp bicarb administered. 0801: Held CPR. Pulses present, HR 69. Continue to hold CPR. Cardiology paged. Plan for EKG, ISTAT troponin, blood gases, chest x-ray. 0803: BP 179/101, HR 108 with palpable pulse. 0804: Consulted with Dr. Jay, cardiology. He will assess patient in the ED. Echo ordered. 0805: ISTAT electrolytes, creatinine, and H&H normal. 0804: Possible posterior infarct on EKG. 0807: Consulted with Dr. Pitts, cardiology, in ED at patient's bedside. 0809: Pupils nonreactive. 0810: ISTAT blood gases: pH 6.9, CO2 85. Additional amp of bicarb ordered. 0812: BP 96/70, sat 91%, HR 77. 0812: cath lab technologist at bedside. 0813: Amp bicarb and norepinephrine administered. ISTAT Troponin is elevated at 0.27. 0815: 2mg IV magnesium administered. 0816: Dr. Jay, criminal justice teacher, at bedside. 0816: BP 79/55. 0817: HR dropping 35, pulse still present. Norepinephrine drip increased. 0818: Preliminary echocardiogram - LV function good, RV dilated with reduced systolic function. Could indicate PE. 0819: Dr. Jay declined to take patient to clam bed laborer. 0821: BP 131/72, HR 65. 0827: HR 35-40. 0828: 1mg Atropine administered. 0828: Spoke with hospitalist service. Dr. Fuentes accepts admission. Chest x-ray shows significant left pneumothorax, likely related to CPR, but could be spontaneous. Heart rate has continued to vary between 30s and 60s. She is overbreathing the ventilator at times. We have not been able to get in touch with patient's family members yet. Per records, patient is a full code and we will continue resuscitation efforts at this time. 0840: Spoke with patient's daughter and POA, Marie Horan (cell [phone]). She is [id number]. She says she does not have the paperwork in front of her but knows that the patient would like all the support and life-saving care performed for a limited number of days. 0843: HR 24. Additional round of epinephrine and atropine ordered. Pulse continues to be present. Will continue to administered rounds of epi and atropine as needed to maintain HR and BP. 0845: Amiodarone drip. Plan for chest tube, Thermoguard central line, and HACA protocol per daughter's wishes. 0851: Consulted with Dr. Gagnon, stock raiser. 0858: Dr. Gagnon at bedside assessing patient. He does not recommend HACA and will contact patient's daughter/POA to discuss patient condition. 0902: Pacing at 60 with capture. 0903: Needle decompression in left midaxillary. No obvious air marcelino. 0904: Dr. Gagnon spoke with patient's daughter. He recommended that we focus on making the patient comfortable and do not proceed with extreme interventions due to unlikelihood of survivability of this event. His daughter agreed with this plan. 0905: Pressors discontinued. Pacing stopped. Will not perform central line or chest tube. Patient will be admitted to Dr. Gagnon for comfort care measures only. 0914: Informed patient was pronounced in the ICU. This is an 83 y/o female who presented in cardiac arrest after a witnessed collapse preceded by some respiratory symptoms this morning. ACLS protocols continued upon arrival here and ROSC obtained around 08:00, about 45 minutes after she was reported down. Patient remained intubated with mechanical ventilation and some overbreathing noted. HR and BP varied wildly and required multiple pressors and ACLS medications to maintain perfusion. Chest x-ray showed large left pneumothorax. Daughter, patient's POA, initially reported she wanted all life-saving measures performed for a period of days. In consult with Dr. Gagnon, stock raiser, and Dr. Pitts, svp marketing & communications at [employer], patient's prognosis is poor. Dr. Gagnon discussed case again with patient's daughter and decision was made to continue with comfort care measures only. Patient was admitted to the ICU and shortly afterwards. - Data Points Laboratory Results: Laboratory Results 07/04/18 08:00 07/04/18 08:00 07/04/18 07/04/18 07/04/18 08:32 08:10 08:04 WBC RBC Hgb POC Hgb Hct POC Hct MCV MCH MCHC RDW Plt Count MPV Neut % (Auto) Lymph % (Auto) [place] % (Auto) Eos % (Auto) Baso % (Auto) Nucleat RBC Rel Count Absolute Neuts (auto) Absolute Lymphs (auto) Absolute Monos (auto) Absolute Eos (auto) Absolute Basos (auto) Absolute Nucleated RBC Immature Gran % Seg Neutrophils % Band Neutrophils % Lymphocytes % Monocytes % Eosinophils % Basophils % Metamyelocytes % Myelocytes % Promyelocytes % Blast Cells % Immature Gran # Absolute Seg Neuts Absolute Band Neuts Absolute Lymphocytes Absolute Monocytes Absolute Eosinophils Absolute Basophils Absolute Metamyelocyte Absolute Myelocytes Absolute Promyelocytes Absolute Plasma Cells Nucleated RBCs Atypical Lymphocytes Absolute Blast Cells Plasma Cells % Platelet Estimate Smear Review By POC Blood Source VENOUS ARTERIAL Patient Temperature 36.4 DEGREES DEGREES 37.0 DEGREES DEGREES POC ABG pH 6.94 L* (7.35-7.45) POC ABG pCO2 85 mmHg H* mmHg (34-38) POC ABG pO2 101 mmHg H mmHg (65-75) POC ABG HCO3 18 mEq/L L mEq/L (22-26) POC ABG Total CO2 21 mEq/L L mEq/L (23-27) POC ABG O2 Sat 91 % L % (92-95) POC ABG Base Excess -14.0 mEq/L L mEq/L (-2.5-2.5) POC VBG pH 7.03 L (7.31-7.42) POC VBG pCO2 76 mmHg H mmHg (40-44) POC VBG pO2 28 mmHg L mmHg (35-40) POC VBG HCO3 20 mEq/L L mEq/L (22-26) POC VBG Total CO2 23 mEq/L mEq/L (21-27) POC VBG Base Excess -11.0 mEq/L L mEq/L (-2.5-2.5) POC Mix VBG O2 Sat 31 % L % (65-75) POC Sodium Sodium POC Potassium Potassium POC Chloride Chloride Carbon Dioxide Anion Gap POC BUN BUN Creatinine POC Creatinine Estimated GFR Glucose POC Glucose POC Lactic Acid Arter 11.4 mmol/L H mmol/L (0.5-1.6) POC Lactic Acid Benjamin 9.4 mmol/L H mmol/L (0.7-2.1) Calcium POC Troponin I 0.27 ng/mL H ng/mL (0.00-0.08) 07/04/18 07/04/18 07/04/18 08:03 08:00 08:00 WBC 10.33 10^3/uL H 10^3/uL (3.80-9.50) RBC 3.75 10^6/uL L 10^6/uL (4.18-5.33) Hgb 12.2 g/dL L g/dL (12.6-16.3) POC Hgb 13.6 gm/dL gm/dL (12.6-16.3) Hct 40.0 % % (38.0-47.0) POC Hct 40 % % (38-47) MCV 106.7 fL H fL (81.5-99.8) MCH 32.5 pg pg (27.9-34.1) MCHC 30.5 g/dL L g/dL (32.4-36.7) RDW 13.2 % % (11.5-15.2) Plt Count 104 10^3/uL L 10^3/uL (150-400) MPV 10.4 fL fL (8.7-11.7) Neut % (Auto) Not Reported Lymph % (Auto) Not Reported [place] % (Auto) Not Reported Eos % (Auto) Not Reported Baso % (Auto) Not Reported Nucleat RBC Rel Count Not Reported Absolute Neuts (auto) Not Reported Absolute Lymphs (auto) Not Reported Absolute Monos (auto) Not Reported Absolute Eos (auto) Not Reported Absolute Basos (auto) Not Reported Absolute Nucleated RBC Not Reported Immature Gran % Not Reported Seg Neutrophils % 14.3 % % Band Neutrophils % 6.7 % % Lymphocytes % 70.5 % % Monocytes % 2.9 % % Eosinophils % 2.8 % % Basophils % 2.8 % % Metamyelocytes % 0.0 % % Myelocytes % 0.0 % % Promyelocytes % 0.0 % % Blast Cells % 0.0 % % Immature Gran # Not Reported Absolute Seg Neuts 1.48 10^/uL L 10^/uL (1.70-6.50) Absolute Band Neuts 0.69 10^3/uL 10^3/uL (0.00-0.70) Absolute Lymphocytes 7.28 10^3/uL H 10^3/uL (1.00-3.00) Absolute Monocytes 0.30 10^3/uL 10^3/uL (0.30-0.80) Absolute Eosinophils 0.29 10^3/uL 10^3/uL (0.03-0.40) Absolute Basophils 0.29 10^3/uL H 10^3/uL (0.02-0.10) Absolute Metamyelocyte 0.00 10^3/mL 10^3/mL (0.00-0.00) Absolute Myelocytes 0.00 10^3/mL 10^3/mL (0.00-0.00) Absolute Promyelocytes 0.00 10^3/uL 10^3/uL (0.00-0.00) Absolute Plasma Cells 0.00 10^3/uL 10^3/uL (0.00-0.00) Nucleated RBCs 1.0 /100 WBC H /100 WBC (0-0) Atypical Lymphocytes 1+ H Absolute Blast Cells 0.00 10^3/uL 10^3/uL (0.00-0.00) Plasma Cells % 0.0 % % Platelet Estimate DECREASED L (ADEQ) Smear Review By Pending POC Blood Source Patient Temperature POC ABG pH POC ABG pCO2 POC ABG pO2 POC ABG HCO3 POC ABG Total CO2 POC ABG O2 Sat POC ABG Base Excess POC VBG pH POC VBG pCO2 POC VBG pO2 POC VBG HCO3 POC VBG Total CO2 POC VBG Base Excess POC Mix VBG O2 Sat POC Sodium 140 mEq/L mEq/L (135-145) Sodium 139 mEq/L mEq/L (135-145) POC Potassium 4.8 mEq/L mEq/L (3.3-5.0) Potassium 4.7 mEq/L mEq/L (3.3-5.0) POC Chloride 109 mEq/L mEq/L (97-110) Chloride 108 mEq/L mEq/L (97-110) Carbon Dioxide 14 mEq/l L mEq/l (22-31) Anion Gap 17 mEq/L H mEq/L (8-16) POC BUN 27 mg/dL H mg/dL (7-23) BUN 19 mg/dL mg/dL (7-23) Creatinine 0.9 mg/dL mg/dL (0.6-1.0) POC Creatinine 1.0 mg/dL mg/dL (0.6-1.0) Estimated GFR 60 Glucose 279 mg/dL H mg/dL (70-100) POC Glucose 272 mg/dL H mg/dL (70-100) POC Lactic Acid Arter POC Lactic Acid Benjamin Calcium 7.9 mg/dL L mg/dL (8.5-10.4) POC Troponin I Medications Given: Discontinued Medications Epinephrine HCl (Epinephrine) 1 mg IVP ONCE ONE Stop: 07/04/18 09:35 Last Admin: 07/04/18 07:56 Dose: 1 mg Epinephrine HCl (Epinephrine) 1 mg IVP ONCE ONE Stop: 07/04/18 09:36 Last Admin: 07/04/18 08:00 Dose: 1 mg Miscellaneous Medication (Code Blue Resuscitation) 1 ea MIS EDNOW ONE Stop: 07/04/18 09:39 Last Admin: 07/04/18 09:38 Dose: 1 ea Point of Care Test Results: Chemistry 07/04/18 07/04/18 08:04 08:03 POC Sodium 140 mEq/L mEq/L (135-145) POC Potassium 4.8 mEq/L mEq/L (3.3-5.0) POC Chloride 109 mEq/L mEq/L (97-110) POC BUN 27 mg/dL H mg/dL (7-23) POC Creatinine 1.0 mg/dL mg/dL (0.6-1.0) POC Glucose 272 mg/dL H mg/dL (70-100) POC Troponin I 0.27 ng/mL H ng/mL (0.00-0.08) Blood Gas/Lactic Acid-Arterial 07/04/18 07/04/18 08:10 08:32 POC Blood Source ARTERIAL VENOUS POC ABG pH 6.94 L* POC ABG pCO2 85 H* POC ABG pO2 101 H POC ABG HCO3 18 L POC ABG Total CO2 21 L POC ABG O2 Sat 91 L POC ABG Base Excess -14.0 L POC Lactic Acid Arter 11.4 H Blood Gas/Lactic Acid-Venous 07/04/18 08:32 POC VBG pH 7.03 L (7.31-7.42) POC VBG pCO2 76 mmHg H mmHg (40-44) POC VBG pO2 28 mmHg L mmHg (35-40) POC VBG HCO3 20 mEq/L L mEq/L (22-26) POC VBG Total CO2 23 mEq/L mEq/L (21-27) POC VBG Base Excess -11.0 mEq/L L mEq/L (-2.5-2.5) POC Mix VBG O2 Sat 31 % L % (65-75) POC Lactic Acid Benjamin 9.4 mmol/L H mmol/L (0.7-2.1) ISTAT H&H 07/04/18 08:03 POC Hgb 13.6 gm/dL gm/dL (12.6-16.3) POC Hct 40 % % (38-47) Departure - Dep[facility] Clinical Impression: Cardiac arrest Condition: Critical Report Scribed for: Jeremi Giron Report Scribed by: Maine Pickett Date of Report: 07/04/18 Time of Report: 08:29
[2018-07-04 08:34] LABS: PLATELET COUNT 104 10^3/uL (150-400)
--- NOTE | 2018-07-04 09:31 | GCON ---
CARDIOLOGY CONSULT DATE OF CONSULTATION: 07/04/2018 REFERRING PHYSICIAN: Jeremi Giron MD CHIEF COMPLAINT: Respiratory versus cardiac arrest. HISTORY OF PRESENT ILLNESS: We were asked by Dr. Giron to consult on Mrs. Contreras. The patient is a n 83-year-old female with a past history of bilateral pulmonary embolism in October 2017, she has be en on chronic Xarelto therapy; depression, hypertension, alcohol abuse. History is from the ER staff and Dr. Giron and EMS report as the patient is currently intubated and unresponsive. The patient and her were in bed early this morning. Her noticed gasp ing and that she was unresponsive. He called 911 and started CPR. Apparently, initial rhythm was as ystole and ACLS protocol was started. The patient was intubated in the field. En route to [facility], she did have VF and received shocks for this. ACLS protocol was continued with atropine and epi nephrine. She arrived in the ER at 7:55 a.m. With continued CPR, atropine, and epinephrine, she did have return of spontaneous circulation. At present, she is requiring norepinephrine drip to [facility] n pressure and still has frequent drops in her heart rate to the 30s. Her initial 12-lead EKG shows accelerated junctional rhythm with diffuse ST depression, but no ST rita vation. REVIEW OF SYSTEMS: Unable as the patient is intubated and unresponsive. PAST MEDICAL HISTORY: 1. Pulmonary embolism on chronic Xarelto therapy. 2. History of hip fracture in October 2017. 3. Depression. 4. Hypertension. 5. Alcohol abuse. PAST SURGICAL HISTORY: Femur fracture, October 2017, status post repair. OUTPATIENT MEDICATIONS: Have not yet been reconciled, but per her most recent hospital visit include Xarelto, losartan, oxycodone, MiraLAX, senna, Zoloft, thiamin, tramadol. ALLERGIES: No known drug allergies. SOCIAL HISTORY: The patient is and lives with her . She does drink alcohol heavily a nd has so for many years. She is a former smoker. FAMILY HISTORY: Not applicable to the current case. PHYSICAL EXAM: VITAL SIGNS: Blood pressure has been very labile 70s to 130 systolic. Heart rate yañez s also been labile 30s to 70s in what appears to be a junctional rhythm with periods of ventricular e scape. She is saturating about 90% on 100% FiO2 on the ventilator. GENERAL: She is gravely ill cinthya earing with acrocyanosis. HEENT: Pupils are dilated and nonreactive to light. She has no corneal r eflex. ET tube is in place. Regular rate and rhythm with distant heart sounds. No obvious murmur. LUNGS: Clear anteriorly and laterally. ABDOMEN: Obese and nondistended. EXTREMITIES: Mottled wi thout edema. NEURO: She is nonresponsive and intubated. LABORATORY DATA: White count 10.3, hematocrit is 40, and platelets are 104. Initial blood gas shows a pH of 6.94, PO2 of 101, pCO2 of 85. Follow up venous pH is 7.03. Sodium 140, potassium 4.8, chlo ride 109, bicarb 14, BUN 19, creatinine 0.9, glucose 272, calcium 7.9. Lactic acid 11.4. Troponin 0 .27. EKG reviewed by me: Possible accelerated junctional escape rhythm. Nonspecific IVCD. Diffuse ST de pression. Cannot rule out old inferior myocardial infarction. Chest x-ray reviewed by me: Left-sided pneumothorax. Echocardiogram at the bedside, reviewed by me: Normal LV systolic function without regional wall mot ion abnormality. Bmdf-ad-lgpmciae RV dilation with mildly reduced systolic function. No pericardial effusion. Mildly reduced RV systolic function. No pericardial effusion. ASSESSMENT AND PLAN: An 83-year-old female with past history of PE, asthma, and perhaps some underly ing lung disease, coronary calcifications seen on chest CT, hypertension, alcohol abuse. She was bro ught to the ER in the setting of a systolic arrest. This does not appear to be a primary cardiac andrew nt, but may be related to her underlying lung disease with an acute respiratory event, possibly aspir ation. She does have a pneumothorax, which may have been related to CPR or could have been spontaneo us. At this point, there is no urgent indication for coronary angiography as she has no ST elevation on E KG and echocardiogram demonstrates normal LV function and normal LV wall motion. Unfortunately, given her current neurological status, her prognosis seems quite poor. Ongoing discus sions with Dr. Giron and the patient's family as well as Critical Care. No specific cardiac therapies at this time. Please call with questions or concerns. Greater than 30 minutes of time spent in the emergency department at the bedside, in reviewing data, and discussion with other physicians. /[id number]/MODL
[2018-07-04] MEDS ORDERED: ATROPINE SULFATE 1 MG/10 ML SYR IVP ONE (09:36)
[2018-07-04] MEDS ORDERED: SODIUM BICARBONATE 50 MEQ/50 ML SYR IVP ONE (09:36)
[2018-07-04] MEDS ORDERED: CALCIUM CHLORIDE 1 GM/10 ML INJ IV ONE (09:36)
[2018-07-04] MEDS ORDERED: CODE BLUE RESUSCITATION 1 EA MISC ONE (09:38)
--- NOTE | 2018-07-04 09:46 | GCON ---
HISTORY AND PHYSICAL. REASON FOR ADMISSION: Status post arrest. HISTORY OF PRESENT ILLNESS: This patient is an 83-year-old white female with a past medical history of depression, hypertension, alcohol abuse, and pulmonary embolism. This occurred in October. She presented via EMS Emergency after being found down at home. She had been down for well over an hour. In the emergency room after an extensive resuscitation, they were able to obtain a pulse an d she was subsequently transferred to the intensive care unit. I had a long discussion with the tri ent's daughter, who is her medical decision-maker and explained the dire nature of her mother's condi tion. I felt that her chance of survival was near zero. The daughter agreed for comfort care measur es only. PAST MEDICAL HISTORY: Significant for pulmonary embolism, depression, hypertension, alcohol abuse. FAMILY HISTORY: Noncontributory. SOCIAL HISTORY: She lives with her life partner. No history of tobacco use. Previous excess is alc ohol use. REVIEW OF SYSTEMS: 10-point review of systems was attempted. The patient was obtunded and on mechan ical ventilation. PHYSICAL EXAM: VITAL SIGNS: Blood pressure was 30/24, pulse was 39, respirations 14, afebrile. Oxy gen saturation was unobtainable. HEENT pupils were wide and unresponsive. Throat: Endotracheal tub e is in good position. NECK: Supple. There was no cervical adenopathy. HEART: Sounds are distant . LUNGS: Diminished breath sounds, but no wheeze. ABDOMEN: Soft, nontender. Bowel sounds are dim inished. EXTREMITIES: No clubbing, cyanosis, or edema. LABORATORIES: White count 10, hemoglobin 12, hematocrit 40, platelet count is 104. Sodium 140, pota ssium 4.8, chloride 109, CO2 is 14, BUN is 19, creatinine 0.9, glucose 279. The arterial blood gas pH is 6.94, pCO2 of 85, PO2 of 101, bicarb 21, oxygen saturation 91%. IMPRESSION: 1. Status post cor, etiology which is unclear. 2. Severe and profound hypotension. 3. Severe bradycardia. 4. Pneumothorax. 5. Incomplete database. RECOMMENDATIONS: Have discussed case with the patient's daughter. Given the unlikelihood of surviva bility from her insult, is has been decided the patient be made comfortable. /[id number]/MODL
[2018-07-04 09:52] VITALS: BP 185/85
--- NOTE | 2018-07-04 09:55 | GDS ---
DATE OF : July 04, 2018 TIME OF : 9:14 a.m. CAUSE OF : Status post cardiac arrest, respiratory failure, bilateral pneumothoraces. HOSPITAL COURSE: The patient is an unfortunate 83-year-old white female, who was admitted on 018 in full cardiac arrest. She had been found down earlier that morning. Resuscitative efforts wer e performed in the emergency room, including multiple pressors and chest compressions. She was subse quently intubated and placed on mechanical ventilation. The patient was then subsequently transferre d to the intensive care unit. A long discussion ensued with the patient's daughter, who is her medic al power of ip technology transactions attorney. It was decided that given her poor prognosis and dismal chance of survival steffi t all support be withdrawn, and patient made comfortable. This was performed, but patient was not ex tubated at that time. Her pulse and blood pressure ceased, and she was pronounced at 9:14 in morning. Her daughter was then informed. /[id number]/MODL
--- NOTE | 2018-07-04 10:32 | ASMTCMCOM ---
CM Note CM Note Notes: CM involvement with the pt. (req. of ED PEDRO Jimenez) after she coded. This SW was present for a phone call to the pt.s daughter, Preeti Horan ([phone]) by Dr[address] Gagnon. Preeti indicated that she is POA. She was informed that the pt. was not responding despite continued efforts. She made the decision to discontinue lifesaving procedures. The pt. was moved to ICU. This gag writer called Preeti to inquire about local family/friends and determine what additional support is needed. Preeti stated that she called the pt.s long-term life partner, Mike Tamez. She could not reach him and assumed he was on his way to the hospital. She stated that Mike found the pt. earlier in the morning and performed CPR. Mike arrived at the hospital with a supportive neighbor. Dr. Gagnon informed him of the pt.s passing and answered his questions. This SW offered support and provided a list of bereavement support services (given to the neighbor.) Laura (Wolf) continued supportive services until Mike left. Date Signed: 07/04/2018 10:32 AM Electronically Signed By:Lenard Villa LCSW
--- NOTE | 2018-07-04 13:37 | CPEKG ---
Test Reason : OPEN Blood Pressure : / mmHG Vent. Rate : 106 BPM Atrial Rate : 108 BPM P-R Int : 141 ms QRS Dur : 128 ms QT Int : 431 ms P-R-T Axes : 066 -57 136 degrees QTc Int : 573 ms Sinus tachycardia Nonspecific IVCD with LAD Inferior infarct, old Lateral leads are also involved Confirmed by Jeremi Giron ([id number]) on 07/04/2018 1:36:56 PM Referred By: Confirmed By:Jeremi Giron
--- NOTE | 2018-07-05 11:00 | ECHO ---
[email or web address] [address] [address] Main: [phone] Fax: Transthoracic Echocardiogram Name: TATA FLORES MR#: [id number] Study Date: 07/04/2018 Study Time: 08:28 AM Date of : Age: 89 year(s) Height: ( ) Weight: ( ) BSA: Gender: Unknown Examination: Limited Echo Indication: Cardiac arrest Image Quality: Contrast: Requested by: Jeremi Giron BP: / Heart Rate: Rhythm: Indication: Cardiac arrest Procedure Staff Rn Urgent Care: [facility] Reading Physician: Paola Pitts MD Requesting Provider: Jereim Giron Conclusions: Normal global systolic LV function. No obvious regional wall motion abnormalities. Mildly to moderately dilated right ventricle. Mildly to moderately reduced right ventricular function. Compared directly to 09/2018 study RV is more dilated more dysfunctional. Previous echo showed LV septal wall motion abnormality which is not currently appreciated. Results discussed with Dr. Giron. Measurements: Chambers Valvular Assessment AV/MV Valvular Assessment TV/PV Normal Normal Normal Name Value Range Name Value Range Name Value Range Continued Measurements: Findings: Left Ventricle: Normal global systolic LV function. No obvious regional wall motion abnormalities. Right Ventricle: Mildly to moderately dilated right ventricle. Mildly to moderately reduced right ventricular function. Pericardium: No pericardial effusion. (No Signature Object) Patient: TATA FLORES Study Date: 07/04/2018 Page 1 of 1 08:28 AM [id number]
== END 2018-07-04 10:53 | disposition expired | DRG 208 ==
LOC: EDUNIT# → F2N 09:21
PROVIDERS: ADMIT Student in an Organized Health Care Education/Training Program; ATTEND Student in an Organized Health Care Education/Training Program
PROC: 5A1935Z Respiratory Ventilation, Less than 24 Consecutive Hours (ICD-10-PCS; principal; 2018-07-04)
DX: J93.9 Pneumothorax, unspecified (principal); I46.9 Cardiac arrest, cause unspecified; I10 Essential (primary) hypertension; Z86.711 Personal history of pulmonary embolism; Z79.01 Long term (current) use of anticoagulants; Z87.891 Personal history of nicotine dependence; J45.909 Unspecified asthma, uncomplicated
CPT/HCPCS: 82435-PO; 82565-PO; 82947-PO; 83605-PO; 84132-PO; 84295-PO; 84484-PO; 84520-PO; 85014-PO; J0461; J3475